=== PATIENT | female | born 1935 | race Caucasian/White ===

== ENCOUNTER 2021-07-07 10:34 | Inpatient (IN) | payer OTHER, MEDICARE ==
[2021-07-07 12:30] LABS: BASO % 0.5 % (0-2.0); EOS % 0.7 % (0-4.5); HEMATOCRIT 34.8 % (32.4-45.2); HEMOGLOBIN 12.2 GM/dL (10.7-15.3); LYMPH % 7.7 % (8-40); MCH 37.7 pg (25.7-33.7); MCHC 35.1 g/dl (32.0-36.0); MEAN CELL VOLUME 107.4 fl (80-96); MEAN PLT VOLUME 7.1 fl (7.5-11.1); MONO % 11.9 % (3.8-10.2); NEUT % 79.2 % (42.8-82.8); PLATELET COUNT 288 10^3/uL (134-434); RBC 3.24 M/mm3 (3.60-5.2); RDW 13.3 % (11.6-15.6); WHITE BLOOD COUNT 7.8 K/mm3 (4.0-10.0)
[2021-07-07 13:17] LABS: ALBUMIN 3.2 g/dl (3.4-5.0); ALK PHOS 92 U/L (45-117); ANION GAP 11 MMOL/L (8-16); BILIRUBIN,TOTAL 0.9 mg/dL (0.2-1); BLOOD UREA NITROGEN 18.6 mg/dL (7-18); CALCIUM 9.8 mg/dL (8.5-10.1); CHLORIDE 101 mmol/L (98-107); CO2 25 mmol/L (21-32); GLUCOSE,RANDOM 81 mg/dL (74-106); SGOT/AST 49 U/L (15-37); SGPT/ALT 26 U/L (13-61); SODIUM 137 mmol/L (136-145); TOT PROT 7.2 g/dl (6.4-8.2)
[2021-07-07 13:28] LABS: ANISOCYTOSIS 2+; MACROCYTOSIS 1+; PLATELET ESTIMATE NORMAL
[2021-07-07 14:39] LABS: MAGNESIUM 1.6 mg/dL (1.8-2.4); PHOSPHOROUS 3.4 mg/dL (2.5-4.9)
[2021-07-07] MEDS ORDERED: ALBUTEROL SO4 0.083% IH SOL 2.5 MG/3 ML VIAL.NEB. NEB PRN (17:09)
[2021-07-07] MEDS: sulfaSALAzine 500 MG TABLET PO SCH ×2 (18:00→21:59)
[2021-07-07] MEDS ORDERED: MAGNESIUM SULF 50% (8.12 MEQ/2 ML-1 GM VIAL) IVPB ONE (18:54)
[2021-07-07] MEDS ORDERED: FLU VACC QS2021-22(6MOS UP)/PF 60 MCG/0.5 ML SYRINGE IM ONE (20:56)
[2021-07-07 21:11] VITALS: BMI 22.9
[2021-07-07] MEDS: BUDESONIDE/FORMETEROL FUMARATE 160/4.5 mcg INHALER IH SCH (22:04)
[2021-07-07] MEDS: ROSUVASTATIN CA 10 MG TABLET (FP) PO SCH (22:05)
[2021-07-07 23:52] LABS: EPI CELLS 1 /uL (0-25.1); HYALINE CASTS 1 /uL (0-3.1); URINE APPEARANCE CLOUDY; URINE BACTERIA 8493 /uL (0-1359); URINE BILIRUBIN NEGATIVE (NEGATIVE); URINE COLOR YELLOW; URINE GLUCOSE (UA) NEGATIVE (NEGATIVE); URINE KETONE 1+ (NEGATIVE); URINE LEUK ESTERASE 3+ (NEGATIVE); URINE NITRITE POSITIVE (NEGATIVE); URINE PROTEIN TRACE (NEGATIVE); URINE RBC 16 /uL (0-23.9); URINE UROBILINOGEN 0.2 mg/dL (0.2-1.0); URINE WBC 690 /uL (0-25.8)
[2021-07-08] MEDS ORDERED: PT OWN MED DRAWER 7, Y5N ONE ×7 (00:36→20:58)
[2021-07-08] MEDS: ACETAMINOPHEN 325 MG TABLET (FP) PO PRN ×2 (03:02→11:24)
[2021-07-08 08:47] LABS: HEMATOCRIT 30.7 % (32.4-45.2); MCH 38.3 pg (25.7-33.7); MCHC 35.9 g/dl (32.0-36.0); MEAN CELL VOLUME 106.5 fl (80-96); MEAN PLT VOLUME 7.1 fl (7.5-11.1); PLATELET COUNT 298 10^3/uL (134-434); RBC 2.88 M/mm3 (3.60-5.2); RDW 13.6 % (11.6-15.6); WHITE BLOOD COUNT 6.4 K/mm3 (4.0-10.0)
[2021-07-08] MEDS ORDERED: ASPIRIN 81 MG CHEWABLE TABLETS PO SCH (10:00)
[2021-07-08] MEDS ORDERED: HYDROCHLOROTHIAZIDE 25 MG TABLET (FP) PO SCH (10:00)
[2021-07-08] MEDS: LOSARTAN POTASSIUM 50 MG TABLET PO SCH (10:34)
[2021-07-08] MEDS: sulfaSALAzine 500 MG TABLET PO SCH ×4 (10:34→21:20)
[2021-07-08] MEDS: ATENOLOL 50 MG TABLET (FP) PO SCH (10:35)
[2021-07-08] MEDS: ENOXAPARIN NA (PORCINE) 40 MG/0.4 ML DISP.SYRIN SQ SCH (10:35)
[2021-07-08] MEDS: amLODIPine BESYLATE 5 MG TABLET (FP) PO SCH (10:35)
[2021-07-08] MEDS: BUDESONIDE/FORMETEROL FUMARATE 160/4.5 mcg INHALER IH SCH ×2 (10:36→21:20)
[2021-07-08 10:37] LABS: ANION GAP 9 MMOL/L (8-16); BLOOD UREA NITROGEN 17.2 mg/dL (7-18); CALCIUM 9.2 mg/dL (8.5-10.1); CHLORIDE 102 mmol/L (98-107); CO2 26 mmol/L (21-32); CREATININE 0.7 mg/dL (0.55-1.3); GLUCOSE,RANDOM 156 mg/dL (74-106); MAGNESIUM 1.8 mg/dL (1.8-2.4); PHOSPHOROUS 2.9 mg/dL (2.5-4.9); SODIUM 136 mmol/L (136-145)
[2021-07-08] MEDS ORDERED: POTASSIUM CHLORIDE TABS 20 MEQ TABLET.ER (FP) PO ONE (11:00)
[2021-07-08] MEDS: KCL 10 MEQ IVPB 10 MEQ/100 ML INFUS.BAG IVPB SCH ×3 (11:12→15:50)
[2021-07-08 19:41] LABS: BF WBC & OTHER NUCLEATED CELLS 14389 /mm3
[2021-07-08 20:11] LABS: BODY FLUID MACROPHAGES 2 %; BODY FLUID MONOCYTE 9 %
[2021-07-08] MEDS: ROSUVASTATIN CA 10 MG TABLET (FP) PO SCH (21:20)
[2021-07-09] MEDS ORDERED: HYDROCHLOROTHIAZIDE 25 MG TABLET (FP) PO SCH ×2 (07:00→10:27)
[2021-07-09 08:46] LABS: BASO % 0.2 % (0-2.0); HEMATOCRIT 32.3 % (32.4-45.2); HEMOGLOBIN 11.4 GM/dL (10.7-15.3); LYMPH % 4.6 % (8-40); MCH 37.8 pg (25.7-33.7); MCHC 35.1 g/dl (32.0-36.0); MEAN CELL VOLUME 107.6 fl (80-96); MEAN PLT VOLUME 7.3 fl (7.5-11.1); MONO % 4.5 % (3.8-10.2); NEUT % 90.7 % (42.8-82.8); PLATELET COUNT 329 10^3/uL (134-434); RDW 13.7 % (11.6-15.6); WHITE BLOOD COUNT 6.2 K/mm3 (4.0-10.0)
[2021-07-09 10:42] LABS: ALBUMIN 2.6 g/dl (3.4-5.0); BILIRUBIN,TOTAL 0.3 mg/dL (0.2-1); CALCIUM 9.1 mg/dL (8.5-10.1); CREATININE 0.5 mg/dL (0.55-1.3); MAGNESIUM 1.9 mg/dL (1.8-2.4); TOT PROT 6.6 g/dl (6.4-8.2)
[2021-07-09] MEDS: ENOXAPARIN NA (PORCINE) 40 MG/0.4 ML DISP.SYRIN SQ SCH (10:51)
[2021-07-09] MEDS: amLODIPine BESYLATE 5 MG TABLET (FP) PO SCH (10:51)
[2021-07-09] MEDS: BUDESONIDE/FORMETEROL FUMARATE 160/4.5 mcg INHALER IH SCH ×2 (10:52→21:10)
[2021-07-09] MEDS: ATENOLOL 50 MG TABLET (FP) PO SCH (10:52)
[2021-07-09] MEDS: sulfaSALAzine 500 MG TABLET PO SCH ×4 (10:52→21:09)
[2021-07-09] MEDS: LOSARTAN POTASSIUM 50 MG TABLET PO SCH (10:52)
[2021-07-09] MEDS ORDERED: PT OWN MED DRAWER 7, Y5N ONE ×2 (21:07→21:56)
[2021-07-09] MEDS: ROSUVASTATIN CA 10 MG TABLET (FP) PO SCH (21:10)
[2021-07-09] MEDS ORDERED: SIMETHICONE 80 MG TAB.CHEW (FP) PO ONE (22:16)
[2021-07-10 04:57] VITALS: BP 139/67; PULSE 68; TEMP 97
[2021-07-10] MEDS ORDERED: PT OWN MED DRAWER 7, Y5N ONE (09:14)
[2021-07-10] MEDS: LOSARTAN POTASSIUM 50 MG TABLET PO SCH (09:26)
[2021-07-10] MEDS: amLODIPine BESYLATE 5 MG TABLET (FP) PO SCH (09:26)
[2021-07-10] MEDS: ATENOLOL 50 MG TABLET (FP) PO SCH (09:26)
[2021-07-10] MEDS: ENOXAPARIN NA (PORCINE) 40 MG/0.4 ML DISP.SYRIN SQ SCH (09:27)
[2021-07-10] MEDS: sulfaSALAzine 500 MG TABLET PO SCH ×2 (09:27→14:17)
[2021-07-10] MEDS: BUDESONIDE/FORMETEROL FUMARATE 160/4.5 mcg INHALER IH SCH (09:28)
[2021-07-10 10:05] LABS: BLOOD UREA NITROGEN 25.6 mg/dL (7-18); CALCIUM 8.8 mg/dL (8.5-10.1); CREATININE 0.7 mg/dL (0.55-1.3)
== END 2021-07-10 17:24 | DRG 565 ==
LOC: JER 10:34 → JERBED 12:03 → J6S 18:39
PROVIDERS: ADMIT Internal Medicine; ATTEND Internal Medicine
PROC: 0S9D3ZZ Drainage of Left Knee Joint, Percutaneous Approach (ICD-10-PCS; principal; 2021-07-08)
DX: M25.462 Effusion, left knee (principal); K51.90 Ulcerative colitis, unspecified, without complications; M25.461 Effusion, right knee; M17.0 Bilateral primary osteoarthritis of knee; R29.898 Other symptoms and signs involving the musculoskeletal system; E78.5 Hyperlipidemia, unspecified; J44.9 Chronic obstructive pulmonary disease, unspecified; I10 Essential (primary) hypertension; R29.6 Repeated falls; E03.9 Hypothyroidism, unspecified
CPT/HCPCS: 36415; 70450-TC; 71045-TC-FY; 73552-TC-LT-FY; 73562-TC-LT-FY; 73562-TC-RT-FY; 80048; 80053; 81003; 82306; 82550; 82553; 82607; 82746; 82962; 83036; 83735; 84100; 84132; 84443; 84484; 85025; 85027; 86780; 87070; 87075; 87086; 87186; 87205; 90686; 93005; 93010; 93306-TC; 93971-TC; 97116-GP; 97162-GP; 99285-25; C9803; G0008; U0003; U0005

== ENCOUNTER 2021-08-14 08:33 | Inpatient (IN) | payer OTHER, MEDICARE ==
[2021-08-14] MEDS ORDERED: ACETAMINOPHEN 1000 MG/100 ML BAG IVPB ONE (09:23)
[2021-08-14] MEDS ORDERED: ACETAMINOPHEN INJECTION 100 ML IVPB ONE (09:34)
[2021-08-14] MEDS ORDERED: POLYETHYLENE GLYCOL (HEALTHYLAX) 3350 17 GM PACKET PO SCH (10:00)
[2021-08-14 10:28] LABS: BASO % 0.9 % (0-2.0); EOS % 6.8 % (0-4.5); HEMATOCRIT 27.4 % (32.4-45.2); HEMOGLOBIN 9.1 GM/dL (10.7-15.3); LYMPH % 7.7 % (8-40); MCH 33.7 pg (25.7-33.7); MCHC 33.2 g/dl (32.0-36.0); MEAN CELL VOLUME 101.3 fl (80-96); MEAN PLT VOLUME 6.7 fl (7.5-11.1); MONO % 6.2 % (3.8-10.2); NEUT % 78.4 % (42.8-82.8); PLATELET COUNT 481 10^3/uL (134-434); RBC 2.71 M/mm3 (3.60-5.2); RDW 14.7 % (11.6-15.6); WHITE BLOOD COUNT 11.9 K/mm3 (4.0-10.0)
[2021-08-14 10:44] LABS: CALCIUM 8.8 mg/dL (8.5-10.1)
[2021-08-14 10:45] LABS: BLOOD UREA NITROGEN 24.6 mg/dL (7-18)
[2021-08-14 10:48] LABS: CREATININE 0.8 mg/dL (0.55-1.3)
[2021-08-14 10:50] LABS: BILIRUBIN,TOTAL 0.4 mg/dL (0.2-1); TOT PROT 6.4 g/dl (6.4-8.2)
[2021-08-14] MEDS ORDERED: POTASSIUM CHLORIDE TABS 20 MEQ TABLET.ER (FP) PO ONE ×2 (10:51→10:55)
[2021-08-14 10:58] LABS: ALBUMIN 2.1 g/dl (3.4-5.0)
[2021-08-14] MEDS ORDERED: SODIUM CHLORIDE 500 ML IV STA (12:40)
[2021-08-14 13:04] LABS: MAGNESIUM 1.5 mg/dL (1.8-2.4)
[2021-08-14] MEDS ORDERED: MAGNESIUM OXIDE 400 MG TABLET (FP) PO ONE (13:28)
[2021-08-14] MEDS ORDERED: MAGNESIUM OXIDE 400 MG TABLET (FP) ONE (13:31)
[2021-08-14] MEDS ORDERED: SODIUM PHOSPHATE/NA BIPHOS 133 ML ENEMA PR ONE (15:09)
[2021-08-14] MEDS: SENNOSIDES 8.6MG TABLET (FP) PO PRN (21:55)
[2021-08-14] MEDS ORDERED: DOCUSATE SODIUM 100 MG CAPSULE (FP) PO SCH (22:00)
[2021-08-15] MEDS ORDERED: ACETAMINOPHEN 325 MG TABLET (FP) PO ONE (03:38)
[2021-08-15] MEDS ORDERED: ALBUTEROL SO4 2.5/IPRATROPIUM 0.5 INH SOL 3 ML VIAL.NEB. NEB PRN (09:01)
[2021-08-15] MEDS ORDERED: BUDESONIDE/FORMETEROL FUMARATE 160/4.5 mcg INHALER IH SCH (10:00)
[2021-08-15] MEDS ORDERED: POLYETHYLENE GLYCOL 3350 119 GM BTL PO SCH (10:00)
[2021-08-15] MEDS: CALCIUM CARBONATE 650 MG TABLET PO SCH ×2 (19:36→21:01)
[2021-08-15] MEDS: SENNOSIDES 8.6MG TABLET (FP) PO PRN (20:56)
[2021-08-15] MEDS: ROSUVASTATIN CA 10 MG TABLET PO SCH (21:00)
[2021-08-15] MEDS: sulfaSALAzine 500 MG TABLET PO SCH (21:00)
[2021-08-15] MEDS: MONTELUKAST NA 10 MG TABLET PO SCH (21:00)
[2021-08-15] MEDS ORDERED: ONDANSETRON 4 MG/2 ML VIAL IVPUSH ONE (22:15)
[2021-08-16] MEDS: LEVOTHYROXINE NA 100 MCG TABLET (FP) PO SCH (06:31)
[2021-08-16] MEDS: sulfaSALAzine 500 MG TABLET PO SCH ×3 (06:31→22:03)
[2021-08-16] MEDS: LOSARTAN POTASSIUM 50 MG TABLET PO SCH ×2 (10:00→10:21)
[2021-08-16] MEDS ORDERED: PT OWN MED DRAWER 7, Y5N ONE (10:20)
[2021-08-16] MEDS: amLODIPine BESYLATE 5 MG TABLET (FP) PO SCH (10:23)
[2021-08-16] MEDS: BUDESONIDE/FORMETEROL FUMARATE 160/4.5 mcg INHALER IH SCH ×2 (10:27→22:03)
[2021-08-16] MEDS: CALCIUM CARBONATE 650 MG TABLET PO SCH ×2 (14:53→22:03)
[2021-08-16] MEDS: PANTOPRAZOLE 20 MG TABLET PO SCH (14:57)
[2021-08-16 15:24] VITALS: BMI 22.4
[2021-08-16] MEDS: SIMETHICONE 80 MG TAB.CHEW (FP) PO PRN (15:57)
[2021-08-16] MEDS: SENNOSIDES 8.6MG TABLET (FP) PO PRN (17:56)
[2021-08-16] MEDS: AMINO ACIDS/PROTEIN HYDROLYS 30 ML LIQUID.PKT PO SCH (17:57)
[2021-08-16] MEDS: MONTELUKAST NA 10 MG TABLET PO SCH (22:02)
[2021-08-16] MEDS: ROSUVASTATIN CA 10 MG TABLET PO SCH (22:02)
[2021-08-17] MEDS ORDERED: PT OWN MED DRAWER 7, Y5N ONE ×4 (06:04→22:57)
[2021-08-17] MEDS: LEVOTHYROXINE NA 100 MCG TABLET (FP) PO SCH (06:08)
[2021-08-17] MEDS: sulfaSALAzine 500 MG TABLET PO SCH ×3 (06:08→16:06)
[2021-08-17] MEDS: LOSARTAN POTASSIUM 50 MG TABLET PO SCH ×2 (07:31→09:58)
[2021-08-17] MEDS: amLODIPine BESYLATE 5 MG TABLET (FP) PO SCH ×2 (07:31→09:58)
[2021-08-17] MEDS: AMINO ACIDS/PROTEIN HYDROLYS 30 ML LIQUID.PKT PO SCH ×2 (09:57→18:11)
[2021-08-17] MEDS: ASCORBIC ACID 500 MG TABLET (FP) PO SCH (09:58)
[2021-08-17] MEDS: MULTIVITAMINS (DAILY MVI) TABLET (FP) PO SCH (09:58)
[2021-08-17] MEDS: PANTOPRAZOLE 20 MG TABLET PO SCH (09:58)
[2021-08-17] MEDS: BUDESONIDE/FORMETEROL FUMARATE 160/4.5 mcg INHALER IH SCH ×2 (10:00→23:23)
[2021-08-17] MEDS: POLYETHYLENE GLYCOL (HEALTHYLAX) 3350 17 GM PACKET PO SCH ×2 (10:02→10:20)
[2021-08-17 10:45] LABS: HEMATOCRIT 28.4 % (32.4-45.2); HEMOGLOBIN 9.3 GM/dL (10.7-15.3); MCH 33.6 pg (25.7-33.7); MCHC 32.8 g/dl (32.0-36.0); MEAN CELL VOLUME 102.5 fl (80-96); MEAN PLT VOLUME 6.6 fl (7.5-11.1); PLATELET COUNT 464 10^3/uL (134-434); RBC 2.77 M/mm3 (3.60-5.2); RDW 14.6 % (11.6-15.6)
[2021-08-17 11:15] LABS: CALCIUM 8.1 mg/dL (8.5-10.1)
[2021-08-17 11:16] LABS: BLOOD UREA NITROGEN 7.8 mg/dL (7-18); MAGNESIUM 1.4 mg/dL (1.8-2.4)
[2021-08-17 11:20] LABS: CREATININE 0.4 mg/dL (0.55-1.3)
[2021-08-17] MEDS ORDERED: MAGNESIUM SULF 50% (8.12 MEQ/2 ML-1 GM VIAL) IVPB ONE (15:32)
[2021-08-17] MEDS: CALCIUM CARBONATE 650 MG TABLET PO SCH (16:04)
[2021-08-17] MEDS ORDERED: POTASSIUM CHLORIDE TABS 10 MEQ TABLET.ER (FP) PO ONE (20:00)
[2021-08-18] MEDS: CALCIUM CARBONATE 650 MG TABLET PO SCH ×3 (02:15→21:04)
[2021-08-18] MEDS: ROSUVASTATIN CA 10 MG TABLET PO SCH ×2 (02:15→21:04)
[2021-08-18] MEDS: sulfaSALAzine 500 MG TABLET PO SCH ×4 (02:15→21:04)
[2021-08-18] MEDS: MONTELUKAST NA 10 MG TABLET PO SCH ×2 (02:16→21:04)
[2021-08-18] MEDS: POLYETHYLENE GLYCOL (HEALTHYLAX) 3350 17 GM PACKET PO SCH ×3 (02:16→21:04)
[2021-08-18] MEDS ORDERED: ACETAMINOPHEN 325 MG TABLET (FP) PO ONE (02:29)
[2021-08-18] MEDS: LEVOTHYROXINE NA 100 MCG TABLET (FP) PO SCH (07:10)
[2021-08-18] MEDS: AMINO ACIDS/PROTEIN HYDROLYS 30 ML LIQUID.PKT PO SCH ×2 (08:33→17:28)
[2021-08-18 08:34] LABS: HEMATOCRIT 26.1 % (32.4-45.2); HEMOGLOBIN 8.8 GM/dL (10.7-15.3); MCHC 33.8 g/dl (32.0-36.0); MEAN CELL VOLUME 100.8 fl (80-96); MEAN PLT VOLUME 6.4 fl (7.5-11.1); PLATELET COUNT 414 10^3/uL (134-434); RBC 2.59 M/mm3 (3.60-5.2); RDW 14.9 % (11.6-15.6); WHITE BLOOD COUNT 6.8 K/mm3 (4.0-10.0)
[2021-08-18 08:55] LABS: BLOOD UREA NITROGEN 8.9 mg/dL (7-18)
[2021-08-18 08:59] LABS: CREATININE 0.5 mg/dL (0.55-1.3)
[2021-08-18] MEDS ORDERED: PT OWN MED DRAWER 7, Y5N ONE ×3 (10:01→20:54)
[2021-08-18] MEDS: ASCORBIC ACID 500 MG TABLET (FP) PO SCH (10:45)
[2021-08-18] MEDS: ENOXAPARIN NA (PORCINE) 40 MG/0.4 ML DISP.SYRIN SQ SCH (10:45)
[2021-08-18] MEDS: PANTOPRAZOLE 20 MG TABLET PO SCH (10:45)
[2021-08-18] MEDS: MULTIVITAMINS (DAILY MVI) TABLET (FP) PO SCH (10:45)
[2021-08-18] MEDS: SENNOSIDES 8.6MG TABLET (FP) PO SCH (10:47)
[2021-08-18] MEDS: BUDESONIDE/FORMETEROL FUMARATE 160/4.5 mcg INHALER IH SCH ×2 (10:47→21:04)
[2021-08-18] MEDS: LOSARTAN POTASSIUM 50 MG TABLET PO SCH (11:53)
[2021-08-18] MEDS: amLODIPine BESYLATE 5 MG TABLET (FP) PO SCH (11:53)
[2021-08-18] MEDS: SIMETHICONE 80 MG TAB.CHEW (FP) PO PRN (13:46)
[2021-08-18] MEDS ORDERED: ACETAMINOPHEN 325 MG TABLET (FP) PO PRN (16:36)
[2021-08-18] MEDS: traMADol HCL 50 MG TABLET PO PRN (17:28)
[2021-08-18] MEDS: ACETAMINOPHEN 325 MG TABLET (FP) PO PRN (20:32)
[2021-08-19] MEDS ORDERED: PT OWN MED DRAWER 7, Y5N ONE ×5 (05:24→22:49)
[2021-08-19] MEDS: sulfaSALAzine 500 MG TABLET PO SCH ×3 (06:46→22:19)
[2021-08-19] MEDS: LEVOTHYROXINE NA 100 MCG TABLET (FP) PO SCH (06:46)
[2021-08-19 09:51] LABS: HEMATOCRIT 25.3 % (32.4-45.2); HEMOGLOBIN 8.5 GM/dL (10.7-15.3); MCH 33.8 pg (25.7-33.7); MCHC 33.5 g/dl (32.0-36.0); MEAN CELL VOLUME 100.8 fl (80-96); MEAN PLT VOLUME 6.5 fl (7.5-11.1); PLATELET COUNT 418 10^3/uL (134-434); RBC 2.51 M/mm3 (3.60-5.2); RDW 14.6 % (11.6-15.6); WHITE BLOOD COUNT 8.1 K/mm3 (4.0-10.0)
[2021-08-19 10:20] LABS: BLOOD UREA NITROGEN 10.6 mg/dL (7-18)
[2021-08-19 10:24] LABS: CREATININE 0.5 mg/dL (0.55-1.3)
[2021-08-19] MEDS ORDERED: POTASSIUM CHLORIDE TABS 20 MEQ TABLET.ER (FP) PO ONE (10:29)
[2021-08-19] MEDS: MULTIVITAMINS (DAILY MVI) TABLET (FP) PO SCH (11:23)
[2021-08-19] MEDS: SENNOSIDES 8.6MG TABLET (FP) PO SCH (11:23)
[2021-08-19] MEDS: LOSARTAN POTASSIUM 50 MG TABLET PO SCH (11:23)
[2021-08-19] MEDS: ASCORBIC ACID 500 MG TABLET (FP) PO SCH (11:23)
[2021-08-19] MEDS: amLODIPine BESYLATE 5 MG TABLET (FP) PO SCH (11:24)
[2021-08-19] MEDS: PANTOPRAZOLE 20 MG TABLET PO SCH (11:24)
[2021-08-19] MEDS: CALCIUM CARBONATE 650 MG TABLET PO SCH ×3 (11:24→22:19)
[2021-08-19] MEDS: ENOXAPARIN NA (PORCINE) 40 MG/0.4 ML DISP.SYRIN SQ SCH (11:24)
[2021-08-19] MEDS: ACETAMINOPHEN 325 MG TABLET (FP) PO PRN ×2 (11:25→22:05)
[2021-08-19] MEDS: AMINO ACIDS/PROTEIN HYDROLYS 30 ML LIQUID.PKT PO SCH ×2 (11:26→17:32)
[2021-08-19] MEDS: BUDESONIDE/FORMETEROL FUMARATE 160/4.5 mcg INHALER IH SCH ×2 (11:27→22:19)
[2021-08-19] MEDS: POLYETHYLENE GLYCOL (HEALTHYLAX) 3350 17 GM PACKET PO SCH ×3 (11:45→22:07)
[2021-08-19] MEDS: ZINC OXIDE 20% TOPICAL OINTMENT 30 GM TUBE TP SCH ×2 (15:20→22:19)
[2021-08-19] MEDS: MELATONIN 5 MG TABLETS PO PRN (22:05)
[2021-08-19] MEDS: ROSUVASTATIN CA 10 MG TABLET PO SCH (22:07)
[2021-08-19] MEDS: MONTELUKAST NA 10 MG TABLET PO SCH (22:19)
[2021-08-20] MEDS: sulfaSALAzine 500 MG TABLET PO SCH ×3 (07:07→18:42)
[2021-08-20] MEDS: LEVOTHYROXINE NA 100 MCG TABLET (FP) PO SCH (07:07)
[2021-08-20 10:34] LABS: HEMATOCRIT 25.2 % (32.4-45.2); HEMOGLOBIN 8.4 GM/dL (10.7-15.3); MCH 33.9 pg (25.7-33.7); MCHC 33.4 g/dl (32.0-36.0); MEAN CELL VOLUME 101.7 fl (80-96); MEAN PLT VOLUME 6.7 fl (7.5-11.1); PLATELET COUNT 451 10^3/uL (134-434); RBC 2.48 M/mm3 (3.60-5.2); RDW 14.6 % (11.6-15.6); WHITE BLOOD COUNT 6.2 K/mm3 (4.0-10.0)
[2021-08-20 10:48] LABS: CALCIUM 8.2 mg/dL (8.5-10.1)
[2021-08-20 10:49] LABS: BLOOD UREA NITROGEN 9.4 mg/dL (7-18); MAGNESIUM 1.7 mg/dL (1.8-2.4)
[2021-08-20 10:52] LABS: CREATININE 0.4 mg/dL (0.55-1.3)
[2021-08-20] MEDS ORDERED: PT OWN MED DRAWER 7, Y5N ONE ×2 (10:54→15:05)
[2021-08-20] MEDS: ENOXAPARIN NA (PORCINE) 40 MG/0.4 ML DISP.SYRIN SQ SCH (10:57)
[2021-08-20] MEDS: SENNOSIDES 8.6MG TABLET (FP) PO SCH (10:58)
[2021-08-20] MEDS: AMINO ACIDS/PROTEIN HYDROLYS 30 ML LIQUID.PKT PO SCH ×2 (10:59→18:42)
[2021-08-20] MEDS: LOSARTAN POTASSIUM 50 MG TABLET PO SCH (10:59)
[2021-08-20] MEDS: ZINC OXIDE 20% TOPICAL OINTMENT 30 GM TUBE TP SCH ×2 (10:59→23:48)
[2021-08-20] MEDS: CALCIUM CARBONATE 650 MG TABLET PO SCH ×2 (10:59→23:46)
[2021-08-20] MEDS: amLODIPine BESYLATE 5 MG TABLET (FP) PO SCH (10:59)
[2021-08-20] MEDS: MULTIVITAMINS (DAILY MVI) TABLET (FP) PO SCH (10:59)
[2021-08-20] MEDS: PANTOPRAZOLE 20 MG TABLET PO SCH (10:59)
[2021-08-20] MEDS: ASCORBIC ACID 500 MG TABLET (FP) PO SCH (10:59)
[2021-08-20] MEDS: POLYETHYLENE GLYCOL (HEALTHYLAX) 3350 17 GM PACKET PO SCH ×2 (10:59→23:46)
[2021-08-20] MEDS: BUDESONIDE/FORMETEROL FUMARATE 160/4.5 mcg INHALER IH SCH ×2 (11:01→23:47)
[2021-08-20] MEDS ORDERED: MAGNESIUM CL 64 MG TABLET.SA PO ONE (12:00)
[2021-08-20] MEDS: FERROUS SO4 325 MG TABLET (FP) PO SCH (15:08)
[2021-08-20] MEDS: ACETAMINOPHEN 325 MG TABLET (FP) PO PRN (23:45)
[2021-08-20] MEDS: MONTELUKAST NA 10 MG TABLET PO SCH (23:46)
[2021-08-20] MEDS: ROSUVASTATIN CA 10 MG TABLET PO SCH (23:46)
[2021-08-21] MEDS: LEVOTHYROXINE NA 100 MCG TABLET (FP) PO SCH (06:46)
[2021-08-21 08:10] LABS: HEMATOCRIT 26.3 % (32.4-45.2); HEMOGLOBIN 8.8 GM/dL (10.7-15.3); MCH 33.8 pg (25.7-33.7); MCHC 33.5 g/dl (32.0-36.0); MEAN PLT VOLUME 6.4 fl (7.5-11.1); PLATELET COUNT 496 10^3/uL (134-434); RDW 14.8 % (11.6-15.6); WHITE BLOOD COUNT 5.5 K/mm3 (4.0-10.0)
[2021-08-21 09:01] LABS: CALCIUM 8.7 mg/dL (8.5-10.1)
[2021-08-21 09:02] LABS: BLOOD UREA NITROGEN 11.8 mg/dL (7-18)
[2021-08-21 09:05] LABS: CREATININE 0.4 mg/dL (0.55-1.3)
[2021-08-21 09:33] LABS: ERYTHROCYTE SEDIMENTATION RATE 111 mm/hr (0-30)
[2021-08-21] MEDS: AMINO ACIDS/PROTEIN HYDROLYS 30 ML LIQUID.PKT PO SCH ×2 (10:19→17:04)
[2021-08-21] MEDS: ENOXAPARIN NA (PORCINE) 40 MG/0.4 ML DISP.SYRIN SQ SCH (10:19)
[2021-08-21] MEDS: ZINC SULFATE 220 MG CAPSULE (FP) PO SCH (10:20)
[2021-08-21] MEDS: amLODIPine BESYLATE 5 MG TABLET (FP) PO SCH (10:20)
[2021-08-21] MEDS: FERROUS SO4 325 MG TABLET (FP) PO SCH (10:20)
[2021-08-21] MEDS: LOSARTAN POTASSIUM 50 MG TABLET PO SCH (10:20)
[2021-08-21] MEDS: MULTIVITAMINS (DAILY MVI) TABLET (FP) PO SCH (10:20)
[2021-08-21] MEDS: ASCORBIC ACID 500 MG TABLET (FP) PO SCH (10:20)
[2021-08-21] MEDS: PANTOPRAZOLE 20 MG TABLET PO SCH (10:20)
[2021-08-21] MEDS: SENNOSIDES 8.6MG TABLET (FP) PO SCH (10:20)
[2021-08-21] MEDS: sulfaSALAzine 500 MG TABLET PO SCH ×3 (10:21→17:04)
[2021-08-21] MEDS: POLYETHYLENE GLYCOL (HEALTHYLAX) 3350 17 GM PACKET PO SCH ×2 (10:24→22:25)
[2021-08-21] MEDS: CALCIUM CARBONATE 650 MG TABLET PO SCH ×2 (11:58→22:42)
[2021-08-21] MEDS: BUDESONIDE/FORMETEROL FUMARATE 160/4.5 mcg INHALER IH SCH ×2 (11:59→22:27)
[2021-08-21] MEDS: ZINC OXIDE 20% TOPICAL OINTMENT 30 GM TUBE TP SCH ×2 (12:00→22:26)
[2021-08-21] MEDS: ACETAMINOPHEN 325 MG TABLET (FP) PO PRN (22:20)
[2021-08-21] MEDS: ROSUVASTATIN CA 10 MG TABLET PO SCH (22:24)
[2021-08-21] MEDS: MONTELUKAST NA 10 MG TABLET PO SCH (22:25)
[2021-08-22] MEDS: LEVOTHYROXINE NA 100 MCG TABLET (FP) PO SCH (06:41)
[2021-08-22] MEDS: LOSARTAN POTASSIUM 50 MG TABLET PO SCH (10:28)
[2021-08-22] MEDS: MULTIVITAMINS (DAILY MVI) TABLET (FP) PO SCH (10:28)
[2021-08-22] MEDS: ASCORBIC ACID 500 MG TABLET (FP) PO SCH (10:28)
[2021-08-22] MEDS: FERROUS SO4 325 MG TABLET (FP) PO SCH (10:29)
[2021-08-22] MEDS: ENOXAPARIN NA (PORCINE) 40 MG/0.4 ML DISP.SYRIN SQ SCH (10:29)
[2021-08-22] MEDS: amLODIPine BESYLATE 5 MG TABLET (FP) PO SCH (10:29)
[2021-08-22] MEDS: ZINC SULFATE 220 MG CAPSULE (FP) PO SCH (10:29)
[2021-08-22] MEDS: SENNOSIDES 8.6MG TABLET (FP) PO SCH (10:29)
[2021-08-22] MEDS: AMINO ACIDS/PROTEIN HYDROLYS 30 ML LIQUID.PKT PO SCH ×2 (10:29→17:40)
[2021-08-22] MEDS: PANTOPRAZOLE 20 MG TABLET PO SCH (10:29)
[2021-08-22] MEDS ORDERED: PT OWN MED DRAWER 7, Y5N ONE ×5 (10:36→21:38)
[2021-08-22] MEDS: traMADol HCL 50 MG TABLET PO PRN (10:38)
[2021-08-22] MEDS: sulfaSALAzine 500 MG TABLET PO SCH ×3 (10:39→17:52)
[2021-08-22] MEDS: CALCIUM CARBONATE 650 MG TABLET PO SCH ×2 (10:40→21:29)
[2021-08-22] MEDS: BUDESONIDE/FORMETEROL FUMARATE 160/4.5 mcg INHALER IH SCH ×2 (10:40→21:30)
[2021-08-22] MEDS: ZINC OXIDE 20% TOPICAL OINTMENT 30 GM TUBE TP SCH ×2 (10:40→21:30)
[2021-08-22] MEDS: MONTELUKAST NA 10 MG TABLET PO SCH (21:29)
[2021-08-22] MEDS: ROSUVASTATIN CA 10 MG TABLET PO SCH (21:29)
[2021-08-23] MEDS: LEVOTHYROXINE NA 100 MCG TABLET (FP) PO SCH (06:25)
[2021-08-23] MEDS ORDERED: PT OWN MED DRAWER 7, Y5N ONE ×3 (10:58→21:59)
[2021-08-23] MEDS: CALCIUM CARBONATE 650 MG TABLET PO SCH ×2 (11:25→23:54)
[2021-08-23] MEDS: LOSARTAN POTASSIUM 50 MG TABLET PO SCH (11:25)
[2021-08-23] MEDS: amLODIPine BESYLATE 5 MG TABLET (FP) PO SCH (11:25)
[2021-08-23] MEDS: ZINC SULFATE 220 MG CAPSULE (FP) PO SCH (11:25)
[2021-08-23] MEDS: SENNOSIDES 8.6MG TABLET (FP) PO SCH (11:25)
[2021-08-23] MEDS: MULTIVITAMINS (DAILY MVI) TABLET (FP) PO SCH (11:25)
[2021-08-23] MEDS: FERROUS SO4 325 MG TABLET (FP) PO SCH (11:25)
[2021-08-23] MEDS: ASCORBIC ACID 500 MG TABLET (FP) PO SCH (11:25)
[2021-08-23] MEDS: PANTOPRAZOLE 20 MG TABLET PO SCH (11:26)
[2021-08-23] MEDS: BUDESONIDE/FORMETEROL FUMARATE 160/4.5 mcg INHALER IH SCH ×2 (11:26→22:11)
[2021-08-23] MEDS: sulfaSALAzine 500 MG TABLET PO SCH ×3 (11:26→18:00)
[2021-08-23] MEDS: ENOXAPARIN NA (PORCINE) 40 MG/0.4 ML DISP.SYRIN SQ SCH (11:26)
[2021-08-23] MEDS: AMINO ACIDS/PROTEIN HYDROLYS 30 ML LIQUID.PKT PO SCH ×2 (11:26→19:27)
[2021-08-23] MEDS: ZINC OXIDE 20% TOPICAL OINTMENT 30 GM TUBE TP SCH ×2 (14:24→22:07)
[2021-08-23] MEDS: traMADol HCL 50 MG TABLET PO PRN (18:04)
[2021-08-23] MEDS: ACETAMINOPHEN 325 MG TABLET (FP) PO PRN (22:05)
[2021-08-23] MEDS: MELATONIN 5 MG TABLETS PO PRN (22:06)
[2021-08-23] MEDS: ROSUVASTATIN CA 10 MG TABLET PO SCH (22:06)
[2021-08-23] MEDS: MONTELUKAST NA 10 MG TABLET PO SCH (22:06)
[2021-08-24] MEDS ORDERED: PT OWN MED DRAWER 7, Y5N ONE ×2 (00:15→12:07)
[2021-08-24] MEDS: LEVOTHYROXINE NA 100 MCG TABLET (FP) PO SCH (06:13)
[2021-08-24 08:02] LABS: BASO % 1.1 % (0-2.0); EOS % 5.3 % (0-4.5); HEMATOCRIT 25.5 % (32.4-45.2); HEMOGLOBIN 8.5 GM/dL (10.7-15.3); LYMPH % 8.8 % (8-40); MCH 33.7 pg (25.7-33.7); MCHC 33.5 g/dl (32.0-36.0); MEAN CELL VOLUME 100.7 fl (80-96); MONO % 10.2 % (3.8-10.2); NEUT % 74.6 % (42.8-82.8); PLATELET COUNT 577 10^3/uL (134-434); RBC 2.53 M/mm3 (3.60-5.2); RDW 14.9 % (11.6-15.6); WHITE BLOOD COUNT 7.2 K/mm3 (4.0-10.0)
[2021-08-24] MEDS: sulfaSALAzine 500 MG TABLET PO SCH ×3 (12:12→20:39)
[2021-08-24] MEDS: PANTOPRAZOLE 20 MG TABLET PO SCH (12:13)
[2021-08-24] MEDS: ENOXAPARIN NA (PORCINE) 40 MG/0.4 ML DISP.SYRIN SQ SCH (12:13)
[2021-08-24] MEDS: LOSARTAN POTASSIUM 50 MG TABLET PO SCH (12:13)
[2021-08-24] MEDS: FERROUS SO4 325 MG TABLET (FP) PO SCH (12:14)
[2021-08-24] MEDS: ZINC SULFATE 220 MG CAPSULE (FP) PO SCH (12:14)
[2021-08-24] MEDS: MULTIVITAMINS (DAILY MVI) TABLET (FP) PO SCH (12:14)
[2021-08-24] MEDS: amLODIPine BESYLATE 5 MG TABLET (FP) PO SCH (12:14)
[2021-08-24] MEDS: AMINO ACIDS/PROTEIN HYDROLYS 30 ML LIQUID.PKT PO SCH ×2 (12:15→20:40)
[2021-08-24] MEDS: ZINC OXIDE 20% TOPICAL OINTMENT 30 GM TUBE TP SCH ×2 (12:16→21:09)
[2021-08-24] MEDS: ASCORBIC ACID 500 MG TABLET (FP) PO SCH (12:16)
[2021-08-24] MEDS: CALCIUM CARBONATE 650 MG TABLET PO SCH ×2 (12:16→21:08)
[2021-08-24] MEDS: BUDESONIDE/FORMETEROL FUMARATE 160/4.5 mcg INHALER IH SCH ×2 (12:16→21:08)
[2021-08-24] MEDS: SENNOSIDES 8.6MG TABLET (FP) PO SCH (12:17)
[2021-08-24] MEDS ORDERED: AZITHROMYCIN 250 MG TABLET PO ONE ×2 (15:00→16:15)
[2021-08-24] MEDS: ACETAMINOPHEN 325 MG TABLET (FP) PO PRN (20:39)
[2021-08-24] MEDS: MONTELUKAST NA 10 MG TABLET PO SCH (21:08)
[2021-08-24] MEDS: ROSUVASTATIN CA 10 MG TABLET PO SCH (21:08)
[2021-08-25] MEDS: LEVOTHYROXINE NA 100 MCG TABLET (FP) PO SCH (06:47)
[2021-08-25] MEDS: ACETAMINOPHEN 325 MG TABLET (FP) PO PRN ×2 (06:47→20:02)
[2021-08-25] MEDS ORDERED: INSULIN (NOVOLOG) ASPART 100 UNITS/ML 10ML VIAL ONE (07:07)
[2021-08-25] MEDS ORDERED: INSULIN (LEVEMIR) 100 UNITS/ML UNITS SQ ONE (07:08)
[2021-08-25] MEDS ORDERED: PT OWN MED DRAWER 7, Y5N ONE (08:53)
[2021-08-25] MEDS: PANTOPRAZOLE 20 MG TABLET PO SCH (10:24)
[2021-08-25] MEDS: ZINC SULFATE 220 MG CAPSULE (FP) PO SCH (10:24)
[2021-08-25] MEDS: AMINO ACIDS/PROTEIN HYDROLYS 30 ML LIQUID.PKT PO SCH ×2 (10:24→18:05)
[2021-08-25] MEDS: ASCORBIC ACID 500 MG TABLET (FP) PO SCH (10:24)
[2021-08-25] MEDS: POLYETHYLENE GLYCOL (HEALTHYLAX) 3350 17 GM PACKET PO SCH (10:24)
[2021-08-25] MEDS: SENNOSIDES 8.6MG TABLET (FP) PO SCH (10:25)
[2021-08-25] MEDS: amLODIPine BESYLATE 5 MG TABLET (FP) PO SCH ×2 (10:25→11:37)
[2021-08-25] MEDS: MULTIVITAMINS (DAILY MVI) TABLET (FP) PO SCH (10:25)
[2021-08-25] MEDS: FERROUS SO4 325 MG TABLET (FP) PO SCH (10:25)
[2021-08-25] MEDS: CALCIUM CARBONATE 650 MG TABLET PO SCH ×2 (10:26→21:11)
[2021-08-25] MEDS: sulfaSALAzine 500 MG TABLET PO SCH ×3 (10:26→18:05)
[2021-08-25] MEDS: LOSARTAN POTASSIUM 50 MG TABLET PO SCH ×2 (10:26→11:36)
[2021-08-25] MEDS: BUDESONIDE/FORMETEROL FUMARATE 160/4.5 mcg INHALER IH SCH ×2 (10:28→21:12)
[2021-08-25] MEDS: ZINC OXIDE 20% TOPICAL OINTMENT 30 GM TUBE TP SCH ×2 (13:24→21:12)
[2021-08-25] MEDS: ROSUVASTATIN CA 10 MG TABLET PO SCH ×2 (20:02→21:11)
[2021-08-25] MEDS: MELATONIN 5 MG TABLETS PO PRN (20:02)
[2021-08-25] MEDS: MONTELUKAST NA 10 MG TABLET PO SCH ×2 (20:02→21:11)
[2021-08-26 01:00] LABS: EPI CELLS 6 /uL (0-25.1); HYALINE CASTS 3 /uL (0-3.1); PH,URINE 7.5 (5.0-8.0); URINE APPEARANCE CLOUDY; URINE BACTERIA 3409 /uL (0-1359); URINE BILIRUBIN NEGATIVE (NEGATIVE); URINE COLOR DK YELLOW; URINE GLUCOSE (UA) NEGATIVE (NEGATIVE); URINE KETONE NEGATIVE (NEGATIVE); URINE LEUK ESTERASE 2+ (NEGATIVE); URINE NITRITE POSITIVE (NEGATIVE); URINE PROTEIN 1+ (NEGATIVE); URINE RBC 8 /uL (0-23.9); URINE WBC 223 /uL (0-25.8)
[2021-08-26] MEDS: LEVOTHYROXINE NA 100 MCG TABLET (FP) PO SCH (06:54)
[2021-08-26] MEDS: ACETAMINOPHEN 325 MG TABLET (FP) PO PRN (06:54)
[2021-08-26 08:41] LABS: BASO % 1.3 % (0-2.0); EOS % 5.3 % (0-4.5); HEMATOCRIT 24.9 % (32.4-45.2); HEMOGLOBIN 8.3 GM/dL (10.7-15.3); LYMPH % 9.3 % (8-40); MCH 33.5 pg (25.7-33.7); MCHC 33.5 g/dl (32.0-36.0); MEAN CELL VOLUME 100.1 fl (80-96); MEAN PLT VOLUME 5.9 fl (7.5-11.1); MONO % 8.2 % (3.8-10.2); NEUT % 75.9 % (42.8-82.8); PLATELET COUNT 595 10^3/uL (134-434); RBC 2.49 M/mm3 (3.60-5.2); RDW 14.9 % (11.6-15.6); WHITE BLOOD COUNT 6.3 K/mm3 (4.0-10.0)
[2021-08-26 08:52] LABS: MAGNESIUM 1.9 mg/dL (1.8-2.4)
[2021-08-26 08:54] LABS: CALCIUM 8.8 mg/dL (8.5-10.1)
[2021-08-26 08:55] LABS: CREATININE 0.3 mg/dL (0.55-1.3)
[2021-08-26] MEDS ORDERED: cefTRIAXone SODIUM 1 GM VIAL ONE ×2 (09:25→10:36)
[2021-08-26] MEDS ORDERED: DEXTROSE 5%-WATER - 50 ML IVPB ONE (10:36)
[2021-08-26] MEDS: LOSARTAN POTASSIUM 50 MG TABLET PO SCH (10:40)
[2021-08-26] MEDS: sulfaSALAzine 500 MG TABLET PO SCH ×3 (10:40→17:32)
[2021-08-26] MEDS: FERROUS SO4 325 MG TABLET (FP) PO SCH (10:40)
[2021-08-26] MEDS: amLODIPine BESYLATE 5 MG TABLET (FP) PO SCH (10:40)
[2021-08-26] MEDS: ASCORBIC ACID 500 MG TABLET (FP) PO SCH (10:40)
[2021-08-26] MEDS: SENNOSIDES 8.6MG TABLET (FP) PO SCH (10:40)
[2021-08-26] MEDS: ZINC SULFATE 220 MG CAPSULE (FP) PO SCH (10:40)
[2021-08-26] MEDS: MULTIVITAMINS (DAILY MVI) TABLET (FP) PO SCH (10:40)
[2021-08-26] MEDS: AMINO ACIDS/PROTEIN HYDROLYS 30 ML LIQUID.PKT PO SCH ×2 (10:41→17:32)
[2021-08-26] MEDS: CALCIUM CARBONATE 650 MG TABLET PO SCH ×2 (10:41→21:46)
[2021-08-26] MEDS: CEFTRIAXONE 1 GM in DEXTROSE 5%-WATER - 50 ML IVPB SCH (10:41)
[2021-08-26] MEDS: POLYETHYLENE GLYCOL (HEALTHYLAX) 3350 17 GM PACKET PO SCH (10:41)
[2021-08-26] MEDS: ZINC OXIDE 20% TOPICAL OINTMENT 30 GM TUBE TP SCH ×2 (10:42→21:47)
[2021-08-26] MEDS: PANTOPRAZOLE 20 MG TABLET PO SCH (10:43)
[2021-08-26] MEDS: BUDESONIDE/FORMETEROL FUMARATE 160/4.5 mcg INHALER IH SCH ×2 (10:51→21:42)
[2021-08-26] MEDS ORDERED: methylPREDNISolone ACET (DEPO) 80 MG/1 ML VIAL IAR ONE (12:14)
[2021-08-26] MEDS ORDERED: LIDOCAINE 1% P/F 10 MG/ML VIAL SQ ONE (12:14)
[2021-08-26] MEDS: MONTELUKAST NA 10 MG TABLET PO SCH (21:42)
[2021-08-26] MEDS: ROSUVASTATIN CA 10 MG TABLET PO SCH (21:42)
[2021-08-26] MEDS ORDERED: LIDOCAINE PATCH REMOVAL MC SCH (22:00)
[2021-08-26] MEDS ORDERED: LIDOCAINE 5% TOPICAL PATCH TP ONE (22:37)
[2021-08-27] MEDS: LEVOTHYROXINE NA 100 MCG TABLET (FP) PO SCH (06:06)
[2021-08-27] MEDS ORDERED: cefTRIAXone SODIUM 1 GM VIAL ONE (09:40)
[2021-08-27] MEDS ORDERED: DEXTROSE 5%-WATER - 50 ML IVPB ONE (09:41)
[2021-08-27] MEDS: CALCIUM CARBONATE 650 MG TABLET PO SCH (10:35)
[2021-08-27] MEDS: AMINO ACIDS/PROTEIN HYDROLYS 30 ML LIQUID.PKT PO SCH (10:35)
[2021-08-27] MEDS: CEFTRIAXONE 1 GM in DEXTROSE 5%-WATER - 50 ML IVPB SCH (10:36)
[2021-08-27] MEDS: SENNOSIDES 8.6MG TABLET (FP) PO SCH (10:36)
[2021-08-27] MEDS: PANTOPRAZOLE 20 MG TABLET PO SCH (10:37)
[2021-08-27] MEDS: ASCORBIC ACID 500 MG TABLET (FP) PO SCH (10:37)
[2021-08-27] MEDS: ZINC SULFATE 220 MG CAPSULE (FP) PO SCH (10:37)
[2021-08-27] MEDS: FERROUS SO4 325 MG TABLET (FP) PO SCH (10:37)
[2021-08-27] MEDS: amLODIPine BESYLATE 5 MG TABLET (FP) PO SCH (10:37)
[2021-08-27] MEDS: POLYETHYLENE GLYCOL (HEALTHYLAX) 3350 17 GM PACKET PO SCH (10:37)
[2021-08-27] MEDS: LOSARTAN POTASSIUM 50 MG TABLET PO SCH (10:37)
[2021-08-27] MEDS: MULTIVITAMINS (DAILY MVI) TABLET (FP) PO SCH (10:37)
[2021-08-27] MEDS: ZINC OXIDE 20% TOPICAL OINTMENT 30 GM TUBE TP SCH (10:38)
[2021-08-27] MEDS: BUDESONIDE/FORMETEROL FUMARATE 160/4.5 mcg INHALER IH SCH (10:38)
[2021-08-27] MEDS: sulfaSALAzine 500 MG TABLET PO SCH ×2 (10:38→12:27)
[2021-08-27 13:53] VITALS: BP 116/58; PULSE 88; TEMP 97.7
== END 2021-08-27 15:18 | DRG 389 ==
LOC: JER 08:33 → INTOOBSV 14:30 → JERBED 14:30 → J7W 18:08 → OBSVTOIN 08-18 11:38 → J7W 08-26 18:15
PROVIDERS: ADMIT Internal Medicine
PROC: 3E0U33Z Introduction of Anti-inflammatory into Joints, Percutaneous Approach (ICD-10-PCS; principal; 2021-08-26)
PROC: 3E0U3BZ Introduction of Anesthetic Agent into Joints, Percutaneous Approach (ICD-10-PCS; 2021-08-26)
DX: K56.41 Fecal impaction (principal); K51.90 Ulcerative colitis, unspecified, without complications; E44.0 Moderate protein-calorie malnutrition; N39.0 Urinary tract infection, site not specified; J44.9 Chronic obstructive pulmonary disease, unspecified; I10 Essential (primary) hypertension; E78.5 Hyperlipidemia, unspecified; E83.42 Hypomagnesemia; E87.6 Hypokalemia; D64.89 Other specified anemias; E03.9 Hypothyroidism, unspecified; L89.516 Pressure-induced deep tissue damage of right ankle; L89.152 Pressure ulcer of sacral region, stage 2; S90.811A Abrasion, right foot, initial encounter; M17.11 Unilateral primary osteoarthritis, right knee; M11.261 Other chondrocalcinosis, right knee; Z68.22 Body mass index [BMI] 22.0-22.9, adult; B95.2 Enterococcus as the cause of diseases classified elsewhere; R50.9 Fever, unspecified
CPT/HCPCS: 36415; 71045-TC-FY; 71250-TC; 73560-TC-RT-FY; 73610-TC-RT-FY; 73630-TC-RT-FY; 73700-TC-RT; 73721-RT-TC; 74177-TC; 80048; 80053; 81003; 82272; 82607; 82728; 82747; 83540; 83550; 83735; 84466; 84550; 85014; 85025; 85027; 85651; 86140; 87086; 87186; 94010; 97116-GP; 97161-GP; 99285-25; C9803-CS; G0378; Q9967; U0003; U0005

== ENCOUNTER 2021-10-18 14:26 | Inpatient (IN) | payer OTHER, MEDICARE ==
[2021-10-18] MEDS ORDERED: ACETAMINOPHEN 500 MG TABLET (FP) PO ONE (16:01)
[2021-10-18] MEDS ORDERED: VANCOMYCIN 1 GM in D5W (PRE-DOCKED) 1,000 MG/250 ML IVPB ONE (16:31)
[2021-10-18] MEDS ORDERED: ACETAMINOPHEN 325 MG TABLET (FP) ONE (16:34)
[2021-10-18] MEDS ORDERED: VANCOMYCIN 1 GRAM (PRE-DOCKED) 1,000 MG/250 ML BAG IVPB ONE (16:44)
[2021-10-18] MEDS ORDERED: VANCOMYCIN 1 GM/200 ML PREMIX BAG IVPB ONE (17:00)
[2021-10-18 17:34] LABS: BASO % 1.2 % (0-2.0); EOS % 8.6 % (0-4.5); HEMATOCRIT 24.9 % (32.4-45.2); HEMOGLOBIN 8.2 GM/dL (10.7-15.3); LYMPH % 12.1 % (8-40); MCH 30.4 pg (25.7-33.7); MCHC 32.9 g/dl (32.0-36.0); MEAN CELL VOLUME 92.4 fl (80-96); MEAN PLT VOLUME 6.1 fl (7.5-11.1); MONO % 10.4 % (3.8-10.2); NEUT % 67.7 % (42.8-82.8); PLATELET COUNT 393 10^3/uL (134-434); RBC 2.69 M/mm3 (3.60-5.2); RDW 18.2 % (11.6-15.6); WHITE BLOOD COUNT 6.5 K/mm3 (4.0-10.0)
[2021-10-18 17:54] LABS: ALBUMIN 2.4 g/dl (3.4-5.0); BLOOD UREA NITROGEN 8.8 mg/dL (7-18); CALCIUM 9.3 mg/dL (8.5-10.1)
[2021-10-18 17:57] LABS: CREATININE 0.4 mg/dL (0.55-1.3)
[2021-10-18 17:59] LABS: BILIRUBIN,TOTAL 0.7 mg/dL (0.2-1); TOT PROT 6.2 g/dl (6.4-8.2)
[2021-10-18] MEDS ORDERED: ceFAZolin 2 GRAM PREMIX BAG IVPB SCH (20:45)
[2021-10-18] MEDS ORDERED: traMADol HCL 50 MG TABLET PO PRN (20:49)
[2021-10-18 21:24] LABS: MAGNESIUM 1.7 mg/dL (1.8-2.4)
[2021-10-18 21:28] LABS: PHOSPHOROUS 3.2 mg/dL (2.5-4.9)
[2021-10-18] MEDS ORDERED: ACETAMINOPHEN 325 MG TABLET (FP) PO PRN (21:41)
[2021-10-18] MEDS: CEFAZOLIN 2 GM in DEXTROSE 5%-WATER - 100 ML IVPB SCH (22:12)
[2021-10-18] MEDS: LIDOCAINE PATCH REMOVAL MC SCH ×2 (22:13→22:22)
[2021-10-18] MEDS: LIDOCAINE 5% TOPICAL PATCH TP SCH (22:13)
[2021-10-18] MEDS: ROSUVASTATIN CA 10 MG TABLET PO SCH (22:13)
[2021-10-18] MEDS: METHYL SALICYLATE/MENTHOL OINT 30 GM TUBE TP SCH (22:25)
[2021-10-18 22:58] VITALS: BMI 23.3
[2021-10-18] MEDS ORDERED: MAGNESIUM SULF 50% (8.12 MEQ/2 ML-1 GM VIAL) IVPB ONE (23:10)
[2021-10-18] MEDS ORDERED: MAGNESIUM 1GM/D5W - 1 GM/100 ML IVPB IVPB ONE (23:30)
[2021-10-19] MEDS ORDERED: ALBUTEROL SO4 2.5/IPRATROPIUM 0.5 INH SOL 3 ML VIAL.NEB. NEB PRN (03:27)
[2021-10-19] MEDS: CEFAZOLIN 2 GM in DEXTROSE 5%-WATER - 100 ML IVPB SCH ×3 (03:45→20:50)
[2021-10-19] MEDS: traMADol HCL 50 MG TABLET PO PRN ×2 (03:50→18:47)
[2021-10-19 05:01] LABS: EPI CELLS 22 /uL (0-25.1); HYALINE CASTS 1 /uL (0-3.1); PH,URINE 7.5 (5.0-8.0); URINE APPEARANCE CLEAR; URINE BACTERIA 49 /uL (0-1359); URINE BILIRUBIN NEGATIVE (NEGATIVE); URINE COLOR YELLOW; URINE GLUCOSE (UA) NEGATIVE (NEGATIVE); URINE KETONE NEGATIVE (NEGATIVE); URINE LEUK ESTERASE 2+ (NEGATIVE); URINE NITRITE NEGATIVE (NEGATIVE); URINE PROTEIN NEGATIVE (NEGATIVE); URINE RBC 11 /uL (0-23.9); URINE UROBILINOGEN 0.2 mg/dL (0.2-1.0); URINE WBC 52 /uL (0-25.8)
[2021-10-19] MEDS ORDERED: KETOROLAC TROMETHAMINE 15 MG/ML VIAL IVPUSH ONE (05:45)
[2021-10-19] MEDS: LEVOTHYROXINE NA 50 MCG TABLET (FP) PO SCH (06:11)
[2021-10-19] MEDS ORDERED: LEVOTHYROXINE NA 100 MCG TABLET (FP) PO SCH (07:00)
[2021-10-19] MEDS ORDERED: oxyCODONE HCL 5 MG TABLET PO ONE (09:00)
[2021-10-19 09:27] LABS: BASO % 1.5 % (0-2.0); EOS % 7.4 % (0-4.5); HEMATOCRIT 25.5 % (32.4-45.2); HEMOGLOBIN 8.5 GM/dL (10.7-15.3); LYMPH % 11.2 % (8-40); MCH 30.9 pg (25.7-33.7); MCHC 33.4 g/dl (32.0-36.0); MEAN CELL VOLUME 92.5 fl (80-96); MEAN PLT VOLUME 6.4 fl (7.5-11.1); MONO % 10.4 % (3.8-10.2); NEUT % 69.5 % (42.8-82.8); PLATELET COUNT 421 10^3/uL (134-434); RBC 2.76 M/mm3 (3.60-5.2); WHITE BLOOD COUNT 6.2 K/mm3 (4.0-10.0)
[2021-10-19] MEDS: LIDOCAINE 5% TOPICAL PATCH TP SCH (09:57)
[2021-10-19] MEDS: amLODIPine BESYLATE 5 MG TABLET (FP) PO SCH (09:57)
[2021-10-19] MEDS: sulfaSALAzine 500 MG TABLET PO SCH ×3 (09:57→16:55)
[2021-10-19] MEDS: HYDROCHLOROTHIAZIDE 25 MG TABLET (FP) PO SCH (09:57)
[2021-10-19] MEDS: ATENOLOL 50 MG TABLET (FP) PO SCH (09:58)
[2021-10-19] MEDS: BUDESONIDE/FORMETEROL FUMARATE 160/4.5 mcg INHALER IH SCH ×2 (09:58→21:44)
[2021-10-19] MEDS: LOSARTAN POTASSIUM 50 MG TABLET PO SCH (09:59)
[2021-10-19] MEDS: METHYL SALICYLATE/MENTHOL OINT 30 GM TUBE TP SCH (09:59)
[2021-10-19 10:00] LABS: CALCIUM 8.8 mg/dL (8.5-10.1)
[2021-10-19] MEDS ORDERED: BUDESONIDE/FORMETEROL FUMARATE 160/4.5 mcg INHALER IH SCH (10:00)
[2021-10-19] MEDS ORDERED: MONTELUKAST NA 10 MG TABLET PO SCH (10:00)
[2021-10-19] MEDS ORDERED: PANTOPRAZOLE 20 MG TABLET PO SCH (10:00)
[2021-10-19 10:01] LABS: ALBUMIN 2.5 g/dl (3.4-5.0); BLOOD UREA NITROGEN 7.9 mg/dL (7-18); MAGNESIUM 1.9 mg/dL (1.8-2.4)
[2021-10-19] MEDS: ENOXAPARIN NA (PORCINE) 40 MG/0.4 ML DISP.SYRIN SQ SCH (10:01)
[2021-10-19 10:03] LABS: CREATININE 0.4 mg/dL (0.55-1.3)
[2021-10-19 10:05] LABS: BILIRUBIN,TOTAL 0.8 mg/dL (0.2-1); TOT PROT 6.5 g/dl (6.4-8.2)
[2021-10-19 10:07] LABS: PHOSPHOROUS 2.8 mg/dL (2.5-4.9)
[2021-10-19] MEDS: ROSUVASTATIN CA 10 MG TABLET PO SCH (21:44)
[2021-10-19] MEDS: LIDOCAINE PATCH REMOVAL MC SCH (21:48)
[2021-10-19] MEDS: ACETAMINOPHEN 325 MG TABLET (FP) PO PRN (23:47)
[2021-10-20] MEDS: CEFAZOLIN 2 GM in DEXTROSE 5%-WATER - 100 ML IVPB SCH ×2 (05:40→13:30)
[2021-10-20] MEDS: LEVOTHYROXINE NA 50 MCG TABLET (FP) PO SCH (06:28)
[2021-10-20 09:00] LABS: BASO % 1.7 % (0-2.0); EOS % 9.7 % (0-4.5); HEMATOCRIT 24.5 % (32.4-45.2); MCH 30.3 pg (25.7-33.7); MCHC 32.5 g/dl (32.0-36.0); MEAN CELL VOLUME 93.2 fl (80-96); MEAN PLT VOLUME 6.5 fl (7.5-11.1); MONO % 13.2 % (3.8-10.2); NEUT % 61.4 % (42.8-82.8); PLATELET COUNT 393 10^3/uL (134-434); RBC 2.63 M/mm3 (3.60-5.2); RDW 18.6 % (11.6-15.6); WHITE BLOOD COUNT 5.4 K/mm3 (4.0-10.0)
[2021-10-20] MEDS: sulfaSALAzine 500 MG TABLET PO SCH ×3 (09:00→16:56)
[2021-10-20 09:26] LABS: ALBUMIN 2.1 g/dl (3.4-5.0); BLOOD UREA NITROGEN 7.3 mg/dL (7-18); CALCIUM 8.1 mg/dL (8.5-10.1); MAGNESIUM 1.6 mg/dL (1.8-2.4)
[2021-10-20 09:28] LABS: BILIRUBIN,TOTAL 0.2 mg/dL (0.2-1)
[2021-10-20 09:29] LABS: CREATININE 0.4 mg/dL (0.55-1.3)
[2021-10-20 09:32] LABS: TOT PROT 5.8 g/dl (6.4-8.2)
[2021-10-20] MEDS: amLODIPine BESYLATE 5 MG TABLET (FP) PO SCH (10:49)
[2021-10-20] MEDS: ATENOLOL 50 MG TABLET (FP) PO SCH (10:49)
[2021-10-20] MEDS: HYDROCHLOROTHIAZIDE 25 MG TABLET (FP) PO SCH (10:49)
[2021-10-20] MEDS: ENOXAPARIN NA (PORCINE) 40 MG/0.4 ML DISP.SYRIN SQ SCH (10:49)
[2021-10-20] MEDS: LIDOCAINE 5% TOPICAL PATCH TP SCH (10:50)
[2021-10-20] MEDS: BUDESONIDE/FORMETEROL FUMARATE 160/4.5 mcg INHALER IH SCH ×2 (10:51→21:00)
[2021-10-20] MEDS: LOSARTAN POTASSIUM 50 MG TABLET PO SCH (10:57)
[2021-10-20] MEDS: METHYL SALICYLATE/MENTHOL OINT 30 GM TUBE TP SCH (10:59)
[2021-10-20 12:01] LABS: RETICULOCYTES 1.08 % (0.5-1.5)
[2021-10-20] MEDS ORDERED: DEXTROSE 5%-WATER - 50 ML IVPB ONE (12:36)
[2021-10-20] MEDS ORDERED: cefTRIAXone SODIUM 1 GM VIAL ONE (12:36)
[2021-10-20] MEDS: CEFTRIAXONE 1 GM in DEXTROSE 5%-WATER - 50 ML IVPB SCH (13:00)
[2021-10-20] MEDS ORDERED: POTASSIUM CHLORIDE TABS 20 MEQ TABLET.ER (FP) PO ONE (14:07)
[2021-10-20] MEDS ORDERED: MAGNESIUM SULF 50% (8.12 MEQ/2 ML-1 GM VIAL) IVPB ONE (14:17)
[2021-10-20] MEDS ORDERED: MAGNESIUM OXIDE 400 MG TABLET (FP) PO ONE (14:18)
[2021-10-20] MEDS: ACETAMINOPHEN 325 MG TABLET (FP) PO PRN (21:00)
[2021-10-20] MEDS: ROSUVASTATIN CA 10 MG TABLET PO SCH (21:00)
[2021-10-20] MEDS: LIDOCAINE PATCH REMOVAL MC SCH (21:00)
[2021-10-21] MEDS: CEFAZOLIN 2 GM in DEXTROSE 5%-WATER - 100 ML IVPB SCH (01:18)
[2021-10-21] MEDS: LEVOTHYROXINE NA 50 MCG TABLET (FP) PO SCH (07:19)
[2021-10-21] MEDS: sulfaSALAzine 500 MG TABLET PO SCH ×3 (08:00→17:46)
[2021-10-21 09:13] LABS: HEMATOCRIT 25.5 % (32.4-45.2); HEMOGLOBIN 8.7 GM/dL (10.7-15.3); MCH 31.3 pg (25.7-33.7); MCHC 34.2 g/dl (32.0-36.0); MEAN CELL VOLUME 91.4 fl (80-96); MEAN PLT VOLUME 6.3 fl (7.5-11.1); PLATELET COUNT 397 10^3/uL (134-434); RBC 2.79 M/mm3 (3.60-5.2); RDW 18.4 % (11.6-15.6); WHITE BLOOD COUNT 5.7 K/mm3 (4.0-10.0)
[2021-10-21 09:27] LABS: ALBUMIN 2.2 g/dl (3.4-5.0); BLOOD UREA NITROGEN 5.6 mg/dL (7-18); CALCIUM 8.6 mg/dL (8.5-10.1); MAGNESIUM 1.8 mg/dL (1.8-2.4)
[2021-10-21 09:30] LABS: CREATININE 0.3 mg/dL (0.55-1.3); PHOSPHOROUS 2.5 mg/dL (2.5-4.9)
[2021-10-21 09:32] LABS: BILIRUBIN,TOTAL 0.3 mg/dL (0.2-1); TOT PROT 6.2 g/dl (6.4-8.2)
[2021-10-21] MEDS ORDERED: cefTRIAXone SODIUM 1 GM VIAL ONE (10:23)
[2021-10-21] MEDS ORDERED: DEXTROSE 5%-WATER - 50 ML IVPB ONE (10:23)
[2021-10-21] MEDS: LOSARTAN POTASSIUM 50 MG TABLET PO SCH (10:52)
[2021-10-21] MEDS: MULTIVITAMINS (DAILY MVI) TABLET (FP) PO SCH (10:52)
[2021-10-21] MEDS: ZINC SULFATE 220 MG CAPSULE (FP) PO SCH (10:52)
[2021-10-21] MEDS: ATENOLOL 50 MG TABLET (FP) PO SCH (10:52)
[2021-10-21] MEDS: amLODIPine BESYLATE 5 MG TABLET (FP) PO SCH (10:52)
[2021-10-21] MEDS: ASCORBIC ACID 500 MG TABLET (FP) PO SCH (10:53)
[2021-10-21] MEDS: HYDROCHLOROTHIAZIDE 25 MG TABLET (FP) PO SCH (10:53)
[2021-10-21] MEDS: METHYL SALICYLATE/MENTHOL OINT 30 GM TUBE TP SCH (10:53)
[2021-10-21] MEDS: ENOXAPARIN NA (PORCINE) 40 MG/0.4 ML DISP.SYRIN SQ SCH (10:54)
[2021-10-21] MEDS: BUDESONIDE/FORMETEROL FUMARATE 160/4.5 mcg INHALER IH SCH ×2 (10:54→21:12)
[2021-10-21] MEDS: CEFTRIAXONE 1 GM in DEXTROSE 5%-WATER - 50 ML IVPB SCH (10:55)
[2021-10-21] MEDS: LIDOCAINE 5% TOPICAL PATCH TP SCH (10:55)
[2021-10-21] MEDS: AMINO ACIDS/PROTEIN HYDROLYS 30 ML LIQUID.PKT PO SCH (10:59)
[2021-10-21] MEDS ORDERED: POTASSIUM CHLORIDE TABS 20 MEQ TABLET.ER (FP) PO ONE (11:51)
[2021-10-21] MEDS: POTASSIUM CHLORIDE TABS 20 MEQ TABLET.ER (FP) PO ONE (17:44)
[2021-10-21] MEDS: traMADol HCL 50 MG TABLET PO PRN (18:06)
[2021-10-21] MEDS: ROSUVASTATIN CA 10 MG TABLET PO SCH (21:11)
[2021-10-21] MEDS: LIDOCAINE PATCH REMOVAL MC SCH (21:12)
[2021-10-21] MEDS: MELATONIN 5 MG TABLETS PO PRN (21:12)
[2021-10-21] MEDS: ACETAMINOPHEN 325 MG TABLET (FP) PO PRN (21:15)
[2021-10-21] MEDS: KETOROLAC TROMETHAMINE 15 MG/ML VIAL IVPUSH PRN (21:43)
[2021-10-22] MEDS: KETOROLAC TROMETHAMINE 15 MG/ML VIAL IVPUSH PRN ×2 (03:47→21:08)
[2021-10-22] MEDS: LEVOTHYROXINE NA 50 MCG TABLET (FP) PO SCH (06:07)
[2021-10-22] MEDS: traMADol HCL 50 MG TABLET PO PRN (06:57)
[2021-10-22 09:19] LABS: BASO % 1.3 % (0-2.0); EOS % 4.8 % (0-4.5); HEMATOCRIT 23.7 % (32.4-45.2); HEMOGLOBIN 7.9 GM/dL (10.7-15.3); LYMPH % 11.8 % (8-40); MCH 30.5 pg (25.7-33.7); MCHC 33.3 g/dl (32.0-36.0); MEAN CELL VOLUME 91.5 fl (80-96); MEAN PLT VOLUME 6.6 fl (7.5-11.1); MONO % 14.5 % (3.8-10.2); NEUT % 67.6 % (42.8-82.8); PLATELET COUNT 394 10^3/uL (134-434); RBC 2.59 M/mm3 (3.60-5.2); RDW 17.4 % (11.6-15.6); WHITE BLOOD COUNT 6.6 K/mm3 (4.0-10.0)
[2021-10-22 09:37] LABS: MAGNESIUM 1.7 mg/dL (1.8-2.4)
[2021-10-22 09:41] LABS: PHOSPHOROUS 2.8 mg/dL (2.5-4.9)
[2021-10-22] MEDS ORDERED: cefTRIAXone SODIUM 1 GM VIAL ONE (09:49)
[2021-10-22] MEDS ORDERED: DEXTROSE 5%-WATER - 50 ML IVPB ONE (09:50)
[2021-10-22] MEDS: LIDOCAINE 5% TOPICAL PATCH TP SCH (09:57)
[2021-10-22] MEDS: CEFTRIAXONE 1 GM in DEXTROSE 5%-WATER - 50 ML IVPB SCH (09:57)
[2021-10-22] MEDS: ENOXAPARIN NA (PORCINE) 40 MG/0.4 ML DISP.SYRIN SQ SCH (09:58)
[2021-10-22] MEDS: MULTIVITAMINS (DAILY MVI) TABLET (FP) PO SCH (09:58)
[2021-10-22] MEDS: AMINO ACIDS/PROTEIN HYDROLYS 30 ML LIQUID.PKT PO SCH (09:58)
[2021-10-22] MEDS: ATENOLOL 50 MG TABLET (FP) PO SCH (09:59)
[2021-10-22] MEDS: LOSARTAN POTASSIUM 50 MG TABLET PO SCH (09:59)
[2021-10-22] MEDS: ASCORBIC ACID 500 MG TABLET (FP) PO SCH (09:59)
[2021-10-22] MEDS: amLODIPine BESYLATE 5 MG TABLET (FP) PO SCH (09:59)
[2021-10-22] MEDS: ZINC SULFATE 220 MG CAPSULE (FP) PO SCH (09:59)
[2021-10-22] MEDS: HYDROCHLOROTHIAZIDE 25 MG TABLET (FP) PO SCH (09:59)
[2021-10-22] MEDS: sulfaSALAzine 500 MG TABLET PO SCH ×3 (10:00→16:54)
[2021-10-22] MEDS: METHYL SALICYLATE/MENTHOL OINT 30 GM TUBE TP SCH (10:01)
[2021-10-22] MEDS: BUDESONIDE/FORMETEROL FUMARATE 160/4.5 mcg INHALER IH SCH ×2 (10:02→21:08)
[2021-10-22] MEDS ORDERED: MAGNESIUM OXIDE 400 MG TABLET (FP) PO ONE (14:33)
[2021-10-22 14:46] LABS: CALCIUM 8.9 mg/dL (8.5-10.1)
[2021-10-22 14:47] LABS: ALBUMIN 2.2 g/dl (3.4-5.0); BLOOD UREA NITROGEN 11.1 mg/dL (7-18)
[2021-10-22 14:50] LABS: CREATININE 0.4 mg/dL (0.55-1.3)
[2021-10-22 14:52] LABS: BILIRUBIN,TOTAL 0.4 mg/dL (0.2-1); TOT PROT 6.1 g/dl (6.4-8.2)
[2021-10-22] MEDS: LIDOCAINE PATCH REMOVAL MC SCH (21:08)
[2021-10-22] MEDS: ROSUVASTATIN CA 10 MG TABLET PO SCH (21:08)
[2021-10-22] MEDS: MELATONIN 5 MG TABLETS PO PRN (21:08)
[2021-10-22] MEDS ORDERED: MAG HYDROX/AL HYDROX/SIMETH 30 ML UNIT-DOSE CUP PO PRN (23:19)
[2021-10-23] MEDS: KETOROLAC TROMETHAMINE 15 MG/ML VIAL IVPUSH PRN ×2 (05:45→21:37)
[2021-10-23 06:39] LABS: EPI CELLS 12 /uL (0-25.1); HYALINE CASTS 0 /uL (0-3.1); PH,URINE 6.5 (5.0-8.0); URINE APPEARANCE CLEAR; URINE BACTERIA 3 /uL (0-1359); URINE BILIRUBIN NEGATIVE (NEGATIVE); URINE COLOR DK YELLOW; URINE GLUCOSE (UA) NEGATIVE (NEGATIVE); URINE KETONE NEGATIVE (NEGATIVE); URINE LEUK ESTERASE TRACE (NEGATIVE); URINE NITRITE NEGATIVE (NEGATIVE); URINE PROTEIN NEGATIVE (NEGATIVE); URINE RBC 20 /uL (0-23.9); URINE UROBILINOGEN 0.2 mg/dL (0.2-1.0); URINE WBC 14 /uL (0-25.8)
[2021-10-23] MEDS: LEVOTHYROXINE NA 50 MCG TABLET (FP) PO SCH (07:30)
[2021-10-23] MEDS: amLODIPine BESYLATE 5 MG TABLET (FP) PO SCH (09:48)
[2021-10-23] MEDS: ASCORBIC ACID 500 MG TABLET (FP) PO SCH (09:48)
[2021-10-23] MEDS: LOSARTAN POTASSIUM 50 MG TABLET PO SCH (09:48)
[2021-10-23] MEDS: ZINC SULFATE 220 MG CAPSULE (FP) PO SCH (09:48)
[2021-10-23] MEDS: HYDROCHLOROTHIAZIDE 25 MG TABLET (FP) PO SCH (09:48)
[2021-10-23] MEDS: ATENOLOL 50 MG TABLET (FP) PO SCH (09:48)
[2021-10-23] MEDS: MULTIVITAMINS (DAILY MVI) TABLET (FP) PO SCH (09:48)
[2021-10-23] MEDS: METHYL SALICYLATE/MENTHOL OINT 30 GM TUBE TP SCH (09:52)
[2021-10-23] MEDS: AMINO ACIDS/PROTEIN HYDROLYS 30 ML LIQUID.PKT PO SCH (09:53)
[2021-10-23] MEDS: sulfaSALAzine 500 MG TABLET PO SCH ×3 (09:53→17:18)
[2021-10-23] MEDS: BUDESONIDE/FORMETEROL FUMARATE 160/4.5 mcg INHALER IH SCH ×2 (09:56→21:37)
[2021-10-23] MEDS: ENOXAPARIN NA (PORCINE) 40 MG/0.4 ML DISP.SYRIN SQ SCH (09:58)
[2021-10-23] MEDS: LIDOCAINE 5% TOPICAL PATCH TP SCH (09:58)
[2021-10-23] MEDS ORDERED: MAGNESIUM OXIDE 400 MG TABLET (FP) PO ONE (11:35)
[2021-10-23 12:25] LABS: HEMATOCRIT 26.8 % (32.4-45.2); HEMOGLOBIN 8.9 GM/dL (10.7-15.3); MCH 30.4 pg (25.7-33.7); MCHC 33.3 g/dl (32.0-36.0); MEAN CELL VOLUME 91.3 fl (80-96); MEAN PLT VOLUME 6.5 fl (7.5-11.1); PLATELET COUNT 504 10^3/uL (134-434); RBC 2.93 M/mm3 (3.60-5.2); RDW 18.2 % (11.6-15.6); WHITE BLOOD COUNT 6.3 K/mm3 (4.0-10.0)
[2021-10-23 12:35] LABS: BLOOD UREA NITROGEN 18.1 mg/dL (7-18); MAGNESIUM 2.1 mg/dL (1.8-2.4)
[2021-10-23 12:38] LABS: CREATININE 0.5 mg/dL (0.55-1.3); PHOSPHOROUS 3.3 mg/dL (2.5-4.9)
[2021-10-23 13:07] LABS: SARS-CoV-2 NAA Not Detected (Not Detected)
[2021-10-23] MEDS ORDERED: SODIUM CHLORIDE 1,000 ML IV SCH (14:00)
[2021-10-23 17:15] LABS: BASO % 1.3 % (0-2.0); EOS % 10.3 % (0-4.5); HEMATOCRIT 25.3 % (32.4-45.2); HEMOGLOBIN 8.4 GM/dL (10.7-15.3); LYMPH % 13.1 % (8-40); MCH 30.2 pg (25.7-33.7); MCHC 33.1 g/dl (32.0-36.0); MEAN CELL VOLUME 91.1 fl (80-96); MEAN PLT VOLUME 6.6 fl (7.5-11.1); MONO % 10.6 % (3.8-10.2); NEUT % 64.7 % (42.8-82.8); PLATELET COUNT 433 10^3/uL (134-434); RBC 2.78 M/mm3 (3.60-5.2); WHITE BLOOD COUNT 6.3 K/mm3 (4.0-10.0)
[2021-10-23] MEDS: AMOX TR/POT CLAV 875MG/125MG TABLETS (FP) PO SCH (17:17)
[2021-10-23 17:29] LABS: CALCIUM 8.7 mg/dL (8.5-10.1)
[2021-10-23 17:30] LABS: ALBUMIN 2.2 g/dl (3.4-5.0); BLOOD UREA NITROGEN 16.9 mg/dL (7-18)
[2021-10-23 17:33] LABS: CREATININE 0.5 mg/dL (0.55-1.3)
[2021-10-23 17:35] LABS: BILIRUBIN,TOTAL 0.1 mg/dL (0.2-1)
[2021-10-23] MEDS: ROSUVASTATIN CA 10 MG TABLET PO SCH (21:36)
[2021-10-23] MEDS: LIDOCAINE PATCH REMOVAL MC SCH (21:36)
[2021-10-24] MEDS: LEVOTHYROXINE NA 50 MCG TABLET (FP) PO SCH (06:20)
[2021-10-24 07:51] LABS: BASO % 2.5 % (0-2.0); HEMATOCRIT 24.2 % (32.4-45.2); HEMOGLOBIN 8.1 GM/dL (10.7-15.3); LYMPH % 17.2 % (8-40); MCH 30.2 pg (25.7-33.7); MCHC 33.3 g/dl (32.0-36.0); MEAN CELL VOLUME 90.5 fl (80-96); MEAN PLT VOLUME 6.3 fl (7.5-11.1); MONO % 11.2 % (3.8-10.2); NEUT % 57.1 % (42.8-82.8); PLATELET COUNT 402 10^3/uL (134-434); RBC 2.67 M/mm3 (3.60-5.2); RDW 18.1 % (11.6-15.6); WHITE BLOOD COUNT 4.6 K/mm3 (4.0-10.0)
[2021-10-24 08:00] LABS: CALCIUM 8.8 mg/dL (8.5-10.1)
[2021-10-24 08:01] LABS: ALBUMIN 2.1 g/dl (3.4-5.0)
[2021-10-24 08:03] LABS: PHOSPHOROUS 2.7 mg/dL (2.5-4.9)
[2021-10-24 08:04] LABS: CREATININE 0.3 mg/dL (0.55-1.3)
[2021-10-24 08:05] LABS: BILIRUBIN,TOTAL 0.2 mg/dL (0.2-1); TOT PROT 5.8 g/dl (6.4-8.2)
[2021-10-24] MEDS: AMINO ACIDS/PROTEIN HYDROLYS 30 ML LIQUID.PKT PO SCH (08:13)
[2021-10-24] MEDS: sulfaSALAzine 500 MG TABLET PO SCH ×3 (08:14→17:26)
[2021-10-24] MEDS: AMOX TR/POT CLAV 875MG/125MG TABLETS (FP) PO SCH ×2 (08:14→17:26)
[2021-10-24] MEDS: MULTIVITAMINS (DAILY MVI) TABLET (FP) PO SCH (10:02)
[2021-10-24] MEDS: LOSARTAN POTASSIUM 50 MG TABLET PO SCH (10:02)
[2021-10-24] MEDS: amLODIPine BESYLATE 5 MG TABLET (FP) PO SCH (10:02)
[2021-10-24] MEDS: HYDROCHLOROTHIAZIDE 25 MG TABLET (FP) PO SCH (10:03)
[2021-10-24] MEDS: ZINC SULFATE 220 MG CAPSULE (FP) PO SCH (10:03)
[2021-10-24] MEDS: ENOXAPARIN NA (PORCINE) 40 MG/0.4 ML DISP.SYRIN SQ SCH (10:03)
[2021-10-24] MEDS: METHYL SALICYLATE/MENTHOL OINT 30 GM TUBE TP SCH (10:03)
[2021-10-24] MEDS: ATENOLOL 50 MG TABLET (FP) PO SCH (10:03)
[2021-10-24] MEDS: LIDOCAINE 5% TOPICAL PATCH TP SCH (10:03)
[2021-10-24] MEDS: MINERAL OIL/PET HY-PHL TOPICAL OINTMENT 454 GM JAR TP SCH ×3 (10:03→21:16)
[2021-10-24] MEDS: ASCORBIC ACID 500 MG TABLET (FP) PO SCH (10:04)
[2021-10-24] MEDS: BUDESONIDE/FORMETEROL FUMARATE 160/4.5 mcg INHALER IH SCH ×2 (10:04→21:17)
[2021-10-24] MEDS: traMADol HCL 50 MG TABLET PO PRN ×2 (10:05→21:16)
[2021-10-24] MEDS ORDERED: COD LIVER OIL/ZINC OXIDE PASTE 56 GM TUBE TP PRN (11:50)
[2021-10-24] MEDS ORDERED: IRON SUCROSE INJECTION 200 MG in SODIUM CHLORIDE 90 ML IVPB ONE (17:00)
[2021-10-24] MEDS: LIDOCAINE PATCH REMOVAL MC SCH (21:16)
[2021-10-24] MEDS: MELATONIN 5 MG TABLETS PO PRN (21:16)
[2021-10-24] MEDS: ROSUVASTATIN CA 10 MG TABLET PO SCH (21:16)
[2021-10-25] MEDS: ACETAMINOPHEN 325 MG TABLET (FP) PO PRN (00:23)
[2021-10-25] MEDS: LEVOTHYROXINE NA 50 MCG TABLET (FP) PO SCH (06:07)
[2021-10-25] MEDS: AMINO ACIDS/PROTEIN HYDROLYS 30 ML LIQUID.PKT PO SCH (08:17)
[2021-10-25] MEDS: AMOX TR/POT CLAV 875MG/125MG TABLETS (FP) PO SCH ×2 (08:17→17:37)
[2021-10-25] MEDS: sulfaSALAzine 500 MG TABLET PO SCH ×3 (08:17→17:37)
[2021-10-25 08:33] LABS: HEMATOCRIT 25.1 % (32.4-45.2); HEMOGLOBIN 8.3 GM/dL (10.7-15.3); MCHC 33.1 g/dl (32.0-36.0); MEAN CELL VOLUME 90.5 fl (80-96); MEAN PLT VOLUME 6.5 fl (7.5-11.1); PLATELET COUNT 440 10^3/uL (134-434); RBC 2.77 M/mm3 (3.60-5.2); RDW 18.3 % (11.6-15.6); WHITE BLOOD COUNT 6.2 K/mm3 (4.0-10.0)
[2021-10-25 09:06] LABS: CALCIUM 9.3 mg/dL (8.5-10.1)
[2021-10-25 09:07] LABS: BLOOD UREA NITROGEN 8.2 mg/dL (7-18)
[2021-10-25 09:10] LABS: CREATININE 0.4 mg/dL (0.55-1.3)
[2021-10-25] MEDS: ZINC SULFATE 220 MG CAPSULE (FP) PO SCH (09:34)
[2021-10-25] MEDS: MULTIVITAMINS (DAILY MVI) TABLET (FP) PO SCH (09:34)
[2021-10-25] MEDS: ATENOLOL 50 MG TABLET (FP) PO SCH (09:34)
[2021-10-25] MEDS: ENOXAPARIN NA (PORCINE) 40 MG/0.4 ML DISP.SYRIN SQ SCH (09:34)
[2021-10-25] MEDS: METHYL SALICYLATE/MENTHOL OINT 30 GM TUBE TP SCH (09:35)
[2021-10-25] MEDS: HYDROCHLOROTHIAZIDE 25 MG TABLET (FP) PO SCH (09:35)
[2021-10-25] MEDS: ASCORBIC ACID 500 MG TABLET (FP) PO SCH (09:35)
[2021-10-25] MEDS: LOSARTAN POTASSIUM 50 MG TABLET PO SCH (09:35)
[2021-10-25] MEDS: amLODIPine BESYLATE 5 MG TABLET (FP) PO SCH (09:35)
[2021-10-25] MEDS: BUDESONIDE/FORMETEROL FUMARATE 160/4.5 mcg INHALER IH SCH ×2 (09:36→21:53)
[2021-10-25] MEDS: LIDOCAINE 5% TOPICAL PATCH TP SCH (09:36)
[2021-10-25] MEDS ORDERED: IRON SUCROSE INJECTION 200 MG in SODIUM CHLORIDE 90 ML IVPB ONE (10:00)
[2021-10-25] MEDS ORDERED: IRON SUCROSE INJECTION 100 MG in SODIUM CHLORIDE 95 ML IVPB ONE (11:00)
[2021-10-25] MEDS: MINERAL OIL/PET HY-PHL TOPICAL OINTMENT 454 GM JAR TP SCH ×2 (12:00→21:50)
[2021-10-25] MEDS: ROSUVASTATIN CA 10 MG TABLET PO SCH (21:44)
[2021-10-25] MEDS: traMADol HCL 50 MG TABLET PO PRN (21:48)
[2021-10-25] MEDS: MELATONIN 5 MG TABLETS PO PRN (21:49)
[2021-10-25] MEDS: LIDOCAINE PATCH REMOVAL MC SCH (21:50)
[2021-10-26] MEDS: LEVOTHYROXINE NA 50 MCG TABLET (FP) PO SCH (06:14)
[2021-10-26] MEDS: sulfaSALAzine 500 MG TABLET PO SCH ×3 (08:43→19:06)
[2021-10-26] MEDS: AMINO ACIDS/PROTEIN HYDROLYS 30 ML LIQUID.PKT PO SCH (08:43)
[2021-10-26] MEDS: AMOX TR/POT CLAV 875MG/125MG TABLETS (FP) PO SCH ×2 (08:43→19:06)
[2021-10-26] MEDS: MULTIVITAMINS (DAILY MVI) TABLET (FP) PO SCH (12:02)
[2021-10-26] MEDS: ZINC SULFATE 220 MG CAPSULE (FP) PO SCH (12:02)
[2021-10-26] MEDS: amLODIPine BESYLATE 5 MG TABLET (FP) PO SCH (12:02)
[2021-10-26] MEDS: ASCORBIC ACID 500 MG TABLET (FP) PO SCH (12:02)
[2021-10-26] MEDS: HYDROCHLOROTHIAZIDE 25 MG TABLET (FP) PO SCH (12:02)
[2021-10-26] MEDS: ATENOLOL 50 MG TABLET (FP) PO SCH (12:02)
[2021-10-26] MEDS: LOSARTAN POTASSIUM 50 MG TABLET PO SCH (12:03)
[2021-10-26] MEDS: ENOXAPARIN NA (PORCINE) 40 MG/0.4 ML DISP.SYRIN SQ SCH (12:04)
[2021-10-26] MEDS: LIDOCAINE 5% TOPICAL PATCH TP SCH (12:04)
[2021-10-26] MEDS: BUDESONIDE/FORMETEROL FUMARATE 160/4.5 mcg INHALER IH SCH (12:05)
[2021-10-26] MEDS: METHYL SALICYLATE/MENTHOL OINT 30 GM TUBE TP SCH (12:05)
[2021-10-26] MEDS: MINERAL OIL/PET HY-PHL TOPICAL OINTMENT 454 GM JAR TP SCH (12:05)
[2021-10-26 21:31] VITALS: BP 122/48; PULSE 84; TEMP 99
== END 2021-10-26 21:23 | DRG 603 ==
LOC: JER 14:26 → JERBED 16:30 → J8W 21:25
PROVIDERS: ADMIT Hospitalist; ATTEND Internal Medicine
DX: L03.317 Cellulitis of buttock (principal); I50.32 Chronic diastolic (congestive) heart failure; E87.1 Hypo-osmolality and hyponatremia; N39.0 Urinary tract infection, site not specified; K51.90 Ulcerative colitis, unspecified, without complications; I10 Essential (primary) hypertension; J44.9 Chronic obstructive pulmonary disease, unspecified; E78.5 Hyperlipidemia, unspecified; I11.0 Hypertensive heart disease with heart failure; D64.9 Anemia, unspecified; M25.561 Pain in right knee; E03.9 Hypothyroidism, unspecified; L89.322 Pressure ulcer of left buttock, stage 2; L89.312 Pressure ulcer of right buttock, stage 2; G47.00 Insomnia, unspecified; L30.8 Other specified dermatitis; L89.152 Pressure ulcer of sacral region, stage 2
CPT/HCPCS: 36415; 73560-TC-RT-FY; 80048; 80053; 81003; 82272; 82728; 83540; 83550; 83605; 83735; 84100; 85025; 85027; 85045; 87040; 87086; 87186; 97116-GP; 97161-GP; 99285-25; C9803; J1756; U0003; U0005

== ENCOUNTER 2021-12-06 10:30 | Inpatient (IN) | payer OTHER, MEDICARE ==
[2021-12-06 12:28] LABS: BASO % 1.5 % (0-2.0); EOS % 11.9 % (0-4.5); HEMATOCRIT 27.5 % (32.4-45.2); HEMOGLOBIN 9.1 GM/dL (10.7-15.3); LYMPH % 17.4 % (8-40); MCH 30.6 pg (25.7-33.7); MCHC 33.2 g/dl (32.0-36.0); MEAN CELL VOLUME 92.1 fl (80-96); NEUT % 59.2 % (42.8-82.8); PLATELET COUNT 361 10^3/uL (134-434); RBC 2.99 M/mm3 (3.60-5.2); RDW 18.8 % (11.6-15.6)
[2021-12-06] MEDS ORDERED: levETIRAcetam 500 MG TABLET (FP) PO ONE (12:33)
[2021-12-06 12:50] LABS: CALCIUM 8.3 mg/dL (8.5-10.1)
[2021-12-06 12:51] LABS: ALBUMIN 2.3 g/dl (3.4-5.0); BLOOD UREA NITROGEN 8.2 mg/dL (7-18); MAGNESIUM 1.4 mg/dL (1.8-2.4)
[2021-12-06 12:53] LABS: PHOSPHOROUS 2.5 mg/dL (2.5-4.9)
[2021-12-06 12:54] LABS: CREATININE 0.5 mg/dL (0.55-1.3)
[2021-12-06 12:55] LABS: TOT PROT 5.8 g/dl (6.4-8.2)
[2021-12-06 12:55] LABS: URINE APPEARANCE CLEAR; URINE BILIRUBIN NEGATIVE (NEGATIVE); URINE COLOR YELLOW; URINE GLUCOSE (UA) NEGATIVE (NEGATIVE); URINE KETONE NEGATIVE (NEGATIVE); URINE LEUK ESTERASE NEGATIVE (NEGATIVE); URINE NITRITE NEGATIVE (NEGATIVE); URINE PROTEIN NEGATIVE (NEGATIVE)
[2021-12-06 12:56] LABS: BILIRUBIN,TOTAL 0.3 mg/dL (0.2-1)
[2021-12-06] MEDS ORDERED: MAGNESIUM SULF 50% (8.12 MEQ/2 ML-1 GM VIAL) IVPB ONE ×2 (13:52→18:26)
[2021-12-06] MEDS ORDERED: MAGNESIUM 1GM/D5W - 1 GM/100 ML IVPB IVPB ONE (14:00)
[2021-12-06] MEDS ORDERED: FUROSEMIDE 40 MG TABLET (FP) PO PRN (17:13)
[2021-12-06] MEDS: ROSUVASTATIN CA 10 MG TABLET PO SCH (21:44)
[2021-12-06] MEDS: HEPARIN NA (PORCINE) 5,000 UNITS/ML 1ML VIAL SQ SCH (21:49)
[2021-12-06] MEDS: BUDESONIDE/FORMETEROL FUMARATE 160/4.5 mcg INHALER IH SCH (22:00)
[2021-12-06] MEDS: NYSTATIN POWDER 100,000 UNITS/GM - 15 GM TOPICAL POWDER TP SCH (22:01)
[2021-12-06] MEDS: sulfaSALAzine 500 MG TABLET PO SCH (22:01)
[2021-12-06] MEDS: traMADol HCL 50 MG TABLET PO PRN (22:29)
[2021-12-07] MEDS: NYSTATIN POWDER 100,000 UNITS/GM - 15 GM TOPICAL POWDER TP SCH ×3 (05:37→22:15)
[2021-12-07] MEDS: sulfaSALAzine 500 MG TABLET PO SCH ×3 (05:37→22:15)
[2021-12-07] MEDS ORDERED: LEVOTHYROXINE NA 100 MCG TABLET (FP) PO SCH (07:00)
[2021-12-07 09:19] LABS: HEMATOCRIT 27.1 % (32.4-45.2); HEMOGLOBIN 9.1 GM/dL (10.7-15.3); MCH 30.8 pg (25.7-33.7); MCHC 33.6 g/dl (32.0-36.0); MEAN CELL VOLUME 91.6 fl (80-96); MEAN PLT VOLUME 6.3 fl (7.5-11.1); PLATELET COUNT 343 10^3/uL (134-434); RBC 2.96 M/mm3 (3.60-5.2); RDW 18.6 % (11.6-15.6); WHITE BLOOD COUNT 6.1 K/mm3 (4.0-10.0)
[2021-12-07 09:42] LABS: BLOOD UREA NITROGEN 6.4 mg/dL (7-18); MAGNESIUM 1.3 mg/dL (1.8-2.4)
[2021-12-07 09:45] LABS: CALCIUM 8.5 mg/dL (8.5-10.1); CREATININE 0.5 mg/dL (0.55-1.3)
[2021-12-07] MEDS ORDERED: DICLOFENAC SODIUM 20 GM TP SCH (10:00)
[2021-12-07] MEDS: FERROUS SO4 325 MG TABLET (FP) PO SCH (10:56)
[2021-12-07] MEDS: LOSARTAN POTASSIUM 50 MG TABLET PO SCH (10:56)
[2021-12-07] MEDS: amLODIPine BESYLATE 5 MG TABLET (FP) PO SCH (10:57)
[2021-12-07] MEDS: HEPARIN NA (PORCINE) 5,000 UNITS/ML 1ML VIAL SQ SCH ×2 (10:57→22:13)
[2021-12-07] MEDS: BUDESONIDE/FORMETEROL FUMARATE 160/4.5 mcg INHALER IH SCH ×2 (10:57→22:15)
[2021-12-07] MEDS ORDERED: ZINC OXIDE 20% TOPICAL OINTMENT 30 GM TUBE TP PRN (13:23)
[2021-12-07] MEDS ORDERED: POTASSIUM CHLORIDE ORAL LIQUID 20 MEQ/15 ML PO ONE ×2 (13:24→18:00)
[2021-12-07] MEDS ORDERED: GLYCERIN 1 RECTAL SUPPOSITORY, ADULT RC ONE (13:45)
[2021-12-07] MEDS: traMADol HCL 50 MG TABLET PO PRN ×2 (17:46→22:14)
[2021-12-07] MEDS: ATENOLOL 50 MG TABLET (FP) PO SCH (19:06)
[2021-12-07] MEDS: ROSUVASTATIN CA 10 MG TABLET PO SCH (22:15)
[2021-12-08] MEDS: NYSTATIN POWDER 100,000 UNITS/GM - 15 GM TOPICAL POWDER TP SCH ×3 (06:37→21:28)
[2021-12-08] MEDS: sulfaSALAzine 500 MG TABLET PO SCH ×3 (06:37→21:28)
[2021-12-08] MEDS: LEVOTHYROXINE NA 50 MCG TABLET (FP) PO SCH (06:40)
[2021-12-08] MEDS: traMADol HCL 50 MG TABLET PO PRN ×3 (06:52→18:09)
[2021-12-08] MEDS ORDERED: LEVOTHYROXINE NA 50 MCG TABLET (FP) PO SCH (07:00)
[2021-12-08 07:03] LABS: HEMOGLOBIN 8.3 GM/dL (10.7-15.3); MCH 30.7 pg (25.7-33.7); MCHC 33.3 g/dl (32.0-36.0); MEAN CELL VOLUME 92.3 fl (80-96); MEAN PLT VOLUME 6.3 fl (7.5-11.1); PLATELET COUNT 321 10^3/uL (134-434); RBC 2.71 M/mm3 (3.60-5.2); RDW 18.8 % (11.6-15.6)
[2021-12-08 07:12] LABS: CALCIUM 8.2 mg/dL (8.5-10.1)
[2021-12-08 07:13] LABS: BLOOD UREA NITROGEN 5.1 mg/dL (7-18)
[2021-12-08 07:15] LABS: CREATININE 0.4 mg/dL (0.55-1.3)
[2021-12-08] MEDS ORDERED: MAGNESIUM SULFATE IN WATER 2 GM/50 ML IVPB IVPB ONE (08:15)
[2021-12-08] MEDS: LOSARTAN POTASSIUM 50 MG TABLET PO SCH (09:47)
[2021-12-08] MEDS: ATENOLOL 50 MG TABLET (FP) PO SCH (09:47)
[2021-12-08] MEDS: amLODIPine BESYLATE 5 MG TABLET (FP) PO SCH (09:47)
[2021-12-08] MEDS: HEPARIN NA (PORCINE) 5,000 UNITS/ML 1ML VIAL SQ SCH ×2 (09:47→21:28)
[2021-12-08] MEDS: FERROUS SO4 325 MG TABLET (FP) PO SCH (09:47)
[2021-12-08] MEDS: BUDESONIDE/FORMETEROL FUMARATE 160/4.5 mcg INHALER IH SCH ×2 (09:49→21:30)
[2021-12-08] MEDS ORDERED: LEVOTHYROXINE SODIUM 50 MCG PO SCH (10:00)
[2021-12-08] MEDS: LIDOCAINE 5% TOPICAL PATCH TP SCH (11:44)
[2021-12-08] MEDS ORDERED: COD LIVER OIL/ZINC OXIDE PASTE 56 GM TUBE TP PRN (14:19)
[2021-12-08 20:58] VITALS: BMI 22.3
[2021-12-08] MEDS: ROSUVASTATIN CA 10 MG TABLET PO SCH (21:28)
[2021-12-08] MEDS: LIDOCAINE PATCH REMOVAL MC SCH (21:28)
[2021-12-09] MEDS: sulfaSALAzine 500 MG TABLET PO SCH ×3 (06:06→21:04)
[2021-12-09] MEDS: NYSTATIN POWDER 100,000 UNITS/GM - 15 GM TOPICAL POWDER TP SCH ×3 (06:07→21:07)
[2021-12-09] MEDS: LEVOTHYROXINE NA 50 MCG TABLET (FP) PO SCH (06:07)
[2021-12-09] MEDS: traMADol HCL 50 MG TABLET PO PRN (06:09)
[2021-12-09 07:50] LABS: HEMATOCRIT 26.4 % (32.4-45.2); HEMOGLOBIN 8.7 GM/dL (10.7-15.3); MCH 30.7 pg (25.7-33.7); MCHC 33.1 g/dl (32.0-36.0); MEAN CELL VOLUME 92.8 fl (80-96); MEAN PLT VOLUME 5.9 fl (7.5-11.1); PLATELET COUNT 318 10^3/uL (134-434); RBC 2.84 M/mm3 (3.60-5.2); RDW 18.4 % (11.6-15.6); WHITE BLOOD COUNT 8.1 K/mm3 (4.0-10.0)
[2021-12-09] MEDS: AMINO ACIDS/PROTEIN HYDROLYS 30 ML LIQUID.PKT PO SCH ×2 (07:56→17:16)
[2021-12-09 08:38] LABS: BLOOD UREA NITROGEN 5.9 mg/dL (7-18); CALCIUM 8.2 mg/dL (8.5-10.1); CREATININE 0.4 mg/dL (0.55-1.3)
[2021-12-09] MEDS ORDERED: oxyCODONE HCL 5 MG TABLET PO ONE (09:42)
[2021-12-09] MEDS ORDERED: DOCUSATE SODIUM 100 MG CAPSULE (FP) PO ONE (09:42)
[2021-12-09] MEDS: LOSARTAN POTASSIUM 50 MG TABLET PO SCH (10:21)
[2021-12-09] MEDS: HEPARIN NA (PORCINE) 5,000 UNITS/ML 1ML VIAL SQ SCH ×2 (10:21→21:05)
[2021-12-09] MEDS: DOCUSATE SODIUM 100 MG CAPSULE (FP) PO SCH ×2 (10:22→11:22)
[2021-12-09] MEDS: MULTIVITAMINS (DAILY MVI) TABLET (FP) PO SCH (10:22)
[2021-12-09] MEDS: ASCORBIC ACID 250 MG TABLET (FP) PO SCH (10:22)
[2021-12-09] MEDS: amLODIPine BESYLATE 5 MG TABLET (FP) PO SCH (10:22)
[2021-12-09] MEDS: FERROUS SO4 325 MG TABLET (FP) PO SCH (10:22)
[2021-12-09] MEDS: ATENOLOL 50 MG TABLET (FP) PO SCH (10:22)
[2021-12-09] MEDS: LIDOCAINE 5% TOPICAL PATCH TP SCH (10:23)
[2021-12-09] MEDS: BUDESONIDE/FORMETEROL FUMARATE 160/4.5 mcg INHALER IH SCH ×2 (10:24→21:06)
[2021-12-09] MEDS: FLUCONAZOLE 100 MG TABLET (UD) PO SCH (17:16)
[2021-12-09] MEDS: oxyCODONE HCL 5 MG TABLET PO PRN (21:04)
[2021-12-09] MEDS: ROSUVASTATIN CA 10 MG TABLET PO SCH (21:05)
[2021-12-09] MEDS: LIDOCAINE PATCH REMOVAL MC SCH (21:05)
[2021-12-09] MEDS ORDERED: MAG HYDROX/AL HYDROX/SIMETH -MYLANTA- ORAL SUSPENSION PO ONE (21:32)
[2021-12-10] MEDS: NYSTATIN POWDER 100,000 UNITS/GM - 15 GM TOPICAL POWDER TP SCH ×3 (05:52→21:21)
[2021-12-10] MEDS: sulfaSALAzine 500 MG TABLET PO SCH ×3 (05:52→21:21)
[2021-12-10] MEDS: LEVOTHYROXINE NA 50 MCG TABLET (FP) PO SCH (06:11)
[2021-12-10] MEDS ORDERED: LEVOTHYROXINE NA 50 MCG TABLET (FP) PO SCH (07:00)
[2021-12-10] MEDS: oxyCODONE HCL 5 MG TABLET PO PRN (10:53)
[2021-12-10] MEDS: LOSARTAN POTASSIUM 50 MG TABLET PO SCH (10:54)
[2021-12-10] MEDS: MULTIVITAMINS (DAILY MVI) TABLET (FP) PO SCH (10:54)
[2021-12-10] MEDS: amLODIPine BESYLATE 5 MG TABLET (FP) PO SCH (10:54)
[2021-12-10] MEDS: DOCUSATE SODIUM 100 MG CAPSULE (FP) PO SCH (10:54)
[2021-12-10] MEDS: BUDESONIDE/FORMETEROL FUMARATE 160/4.5 mcg INHALER IH SCH ×2 (10:54→21:22)
[2021-12-10] MEDS: ATENOLOL 50 MG TABLET (FP) PO SCH (10:54)
[2021-12-10] MEDS: HEPARIN NA (PORCINE) 5,000 UNITS/ML 1ML VIAL SQ SCH ×2 (10:54→21:20)
[2021-12-10] MEDS: FERROUS SO4 325 MG TABLET (FP) PO SCH (10:54)
[2021-12-10] MEDS: ASCORBIC ACID 250 MG TABLET (FP) PO SCH (10:55)
[2021-12-10] MEDS: LIDOCAINE 5% TOPICAL PATCH TP SCH (10:55)
[2021-12-10] MEDS: FLUCONAZOLE 100 MG TABLET (UD) PO SCH (10:55)
[2021-12-10] MEDS: AMINO ACIDS/PROTEIN HYDROLYS 30 ML LIQUID.PKT PO SCH ×2 (10:55→16:49)
[2021-12-10] MEDS: ROSUVASTATIN CA 10 MG TABLET PO SCH (21:20)
[2021-12-10] MEDS: LIDOCAINE PATCH REMOVAL MC SCH (21:21)
[2021-12-11] MEDS: LEVOTHYROXINE NA 50 MCG TABLET (FP) PO SCH (06:05)
[2021-12-11] MEDS: NYSTATIN POWDER 100,000 UNITS/GM - 15 GM TOPICAL POWDER TP SCH (06:06)
[2021-12-11] MEDS: sulfaSALAzine 500 MG TABLET PO SCH (06:09)
[2021-12-11 08:53] VITALS: BP 112/54; PULSE 68; TEMP 97.4
[2021-12-11] MEDS: AMINO ACIDS/PROTEIN HYDROLYS 30 ML LIQUID.PKT PO SCH (09:07)
[2021-12-11] MEDS: HEPARIN NA (PORCINE) 5,000 UNITS/ML 1ML VIAL SQ SCH (09:07)
[2021-12-11] MEDS: DOCUSATE SODIUM 100 MG CAPSULE (FP) PO SCH (09:07)
[2021-12-11] MEDS: LIDOCAINE 5% TOPICAL PATCH TP SCH (09:07)
[2021-12-11] MEDS: amLODIPine BESYLATE 5 MG TABLET (FP) PO SCH (09:08)
[2021-12-11] MEDS: ATENOLOL 50 MG TABLET (FP) PO SCH (09:08)
[2021-12-11] MEDS: MULTIVITAMINS (DAILY MVI) TABLET (FP) PO SCH (09:08)
[2021-12-11] MEDS: FERROUS SO4 325 MG TABLET (FP) PO SCH (09:08)
[2021-12-11] MEDS: oxyCODONE HCL 5 MG TABLET PO PRN (09:08)
[2021-12-11] MEDS: LOSARTAN POTASSIUM 50 MG TABLET PO SCH (09:08)
[2021-12-11] MEDS: FLUCONAZOLE 100 MG TABLET (UD) PO SCH (09:09)
[2021-12-11] MEDS: ASCORBIC ACID 250 MG TABLET (FP) PO SCH (09:09)
[2021-12-11] MEDS: BUDESONIDE/FORMETEROL FUMARATE 160/4.5 mcg INHALER IH SCH (09:09)
== END 2021-12-11 11:39 | DRG 556 ==
LOC: JER 10:30 → JERBED 15:02 → J6S 17:09
PROVIDERS: ADMIT Internal Medicine; ATTEND Internal Medicine
DX: R26.2 Difficulty in walking, not elsewhere classified (principal); K51.90 Ulcerative colitis, unspecified, without complications; M17.0 Bilateral primary osteoarthritis of knee; L30.9 Dermatitis, unspecified; J44.9 Chronic obstructive pulmonary disease, unspecified; D64.9 Anemia, unspecified; L89.302 Pressure ulcer of unspecified buttock, stage 2; E83.42 Hypomagnesemia; B36.9 Superficial mycosis, unspecified; E78.5 Hyperlipidemia, unspecified
CPT/HCPCS: 36415; 71045-TC-FY; 80048; 80053; 81003; 82550; 83735; 83880; 84100; 84443; 84484; 85025; 85027; 87086; 93005; 93010; 93971-TC; 97116-GP; 97161-GP; 99285-25; C9803-CS; J1644; U0003; U0005

== ENCOUNTER 2022-01-22 04:21 | Inpatient (IN) | payer OTHER, MEDICARE ==
[2022-01-22 05:35] LABS: BASO % 1.3 % (0-2.0); EOS % 17.3 % (0-4.5); HEMATOCRIT 27.6 % (32.4-45.2); HEMOGLOBIN 9.3 GM/dL (10.7-15.3); LYMPH % 15.9 % (8-40); MCH 32.5 pg (25.7-33.7); MCHC 33.7 g/dl (32.0-36.0); MEAN CELL VOLUME 96.5 fl (80-96); MONO % 8.9 % (3.8-10.2); NEUT % 56.6 % (42.8-82.8); PLATELET COUNT 423 10^3/uL (134-434); RBC 2.86 M/mm3 (3.60-5.2); RDW 17.7 % (11.6-15.6); WHITE BLOOD COUNT 7.9 K/mm3 (4.0-10.0)
[2022-01-22 05:56] LABS: ALBUMIN 2.2 g/dl (3.4-5.0); CALCIUM 9.2 mg/dL (8.5-10.1)
[2022-01-22 05:57] LABS: BLOOD UREA NITROGEN 18.6 mg/dL (7-18)
[2022-01-22 06:00] LABS: CREATININE 0.6 mg/dL (0.55-1.3)
[2022-01-22 06:01] LABS: BILIRUBIN,TOTAL 0.4 mg/dL (0.2-1); TOT PROT 6.3 g/dl (6.4-8.2)
[2022-01-22] MEDS ORDERED: ACETAMINOPHEN 1000 MG/100 ML BAG IVPB ONE (06:15)
[2022-01-22] MEDS ORDERED: ACETAMINOPHEN INJECTION 100 ML IVPB ONE (06:35)
[2022-01-22 06:42] VITALS: BMI 20.9
[2022-01-22] MEDS ORDERED: SODIUM CHLORIDE 1,000 ML IV SCH ×2 (07:45→11:15)
[2022-01-22] MEDS ORDERED: FUROSEMIDE 40 MG TABLET (FP) PO PRN (07:53)
[2022-01-22] MEDS ORDERED: LEVOTHYROXINE NA 50 MCG TABLET (FP) PO SCH ×2 (08:30)
[2022-01-22] MEDS ORDERED: FUROSEMIDE 20 MG TABLET (FP) PO SCH (10:00)
[2022-01-22] MEDS ORDERED: FUROSEMIDE 40 MG TABLET (FP) PO SCH (10:00)
[2022-01-22] MEDS ORDERED: amLODIPine BESYLATE 5 MG TABLET (FP) PO SCH (10:00)
[2022-01-22] MEDS ORDERED: amLODIPine BESYLATE 5 MG TABLET (FP) ONE (12:04)
[2022-01-22] MEDS ORDERED: LOSARTAN POTASSIUM 50 MG TABLET ONE (12:04)
[2022-01-22] MEDS ORDERED: HYDROCHLOROTHIAZIDE 25 MG TABLET (FP) ONE (12:04)
[2022-01-22] MEDS ORDERED: LEVOTHYROXINE NA 25 MCG TABLET (FP) ONE (12:04)
[2022-01-22] MEDS ORDERED: LEVOTHYROXINE NA 75 MCG TABLET (FP) ONE (12:05)
[2022-01-22] MEDS ORDERED: ENOXAPARIN NA (PORCINE) 30 MG/0.3 ML DISP.SYRIN SQ ONE (12:05)
[2022-01-22] MEDS ORDERED: DOCUSATE SODIUM 100 MG CAPSULE (FP) PO ONE (12:05)
[2022-01-22 12:19] LABS: CALCIUM 9.1 mg/dL (8.5-10.1)
[2022-01-22 12:20] LABS: BLOOD UREA NITROGEN 17.2 mg/dL (7-18)
[2022-01-22] MEDS: LOSARTAN POTASSIUM 50 MG TABLET PO SCH (12:22)
[2022-01-22] MEDS: HYDROCHLOROTHIAZIDE 25 MG TABLET (FP) PO SCH (12:22)
[2022-01-22] MEDS: LEVOTHYROXINE NA 100 MCG TABLET (FP) PO SCH (12:22)
[2022-01-22] MEDS: amLODIPine BESYLATE 5 MG TABLET (FP) PO SCH (12:22)
[2022-01-22] MEDS: DOCUSATE SODIUM 100 MG CAPSULE (FP) PO SCH (12:22)
[2022-01-22] MEDS: ENOXAPARIN NA (PORCINE) 30 MG/0.3 ML DISP.SYRIN SQ SCH (12:22)
[2022-01-22 12:23] LABS: CREATININE 0.5 mg/dL (0.55-1.3)
[2022-01-22 13:27] LABS: EPI CELLS 7 /uL (0-25.1); HYALINE CASTS 1 /uL (0-3.1); PH,URINE 8.5 (5.0-8.0); URINE APPEARANCE CLOUDY; URINE BACTERIA 644 /uL (0-1359); URINE BILIRUBIN NEGATIVE (NEGATIVE); URINE COLOR YELLOW; URINE GLUCOSE (UA) NEGATIVE (NEGATIVE); URINE KETONE NEGATIVE (NEGATIVE); URINE LEUK ESTERASE TRACE (NEGATIVE); URINE NITRITE NEGATIVE (NEGATIVE); URINE PROTEIN NEGATIVE (NEGATIVE); URINE RBC 4 /uL (0-23.9); URINE UROBILINOGEN 0.2 mg/dL (0.2-1.0); URINE WBC 33 /uL (0-25.8)
[2022-01-22] MEDS: ACETAMINOPHEN 1000 MG/100 ML BAG IVPB PRN ×2 (13:47→23:53)
[2022-01-22] MEDS ORDERED: sulfaSALAzine 500 MG TABLET PO SCH (14:00)
[2022-01-22] MEDS ORDERED: KETOROLAC TROMETHAMINE 15 MG/ML VIAL IVPUSH ONE (14:55)
[2022-01-22] MEDS ORDERED: ACETAMINOPHEN 325 MG TABLET (FP) PO PRN (14:55)
[2022-01-22] MEDS: NYSTATIN 100,000 UNIT/GM TOPICAL CREAM 15 GM TUBE TP SCH ×2 (16:15→22:45)
[2022-01-22] MEDS: ZINC OXIDE 20% TOPICAL OINTMENT 30 GM TUBE TP SCH ×2 (16:15→22:45)
[2022-01-22] MEDS: LIDOCAINE 5% TOPICAL PATCH TP SCH ×2 (16:25)
[2022-01-22] MEDS: ROSUVASTATIN CA 10 MG TABLET PO SCH (22:44)
[2022-01-22] MEDS: LIDOCAINE PATCH REMOVAL MC SCH ×2 (22:45)
[2022-01-23] MEDS: LEVOTHYROXINE NA 100 MCG TABLET (FP) PO SCH (06:30)
[2022-01-23 10:17] LABS: BASO % 1.5 % (0-2.0); EOS % 12.4 % (0-4.5); HEMATOCRIT 28.3 % (32.4-45.2); HEMOGLOBIN 9.6 GM/dL (10.7-15.3); MCH 32.6 pg (25.7-33.7); MCHC 33.8 g/dl (32.0-36.0); MEAN CELL VOLUME 96.4 fl (80-96); MEAN PLT VOLUME 6.4 fl (7.5-11.1); MONO % 7.1 % (3.8-10.2); PLATELET COUNT 454 10^3/uL (134-434); RBC 2.94 M/mm3 (3.60-5.2); RDW 16.9 % (11.6-15.6); WHITE BLOOD COUNT 7.7 K/mm3 (4.0-10.0)
[2022-01-23 10:33] LABS: CALCIUM 8.8 mg/dL (8.5-10.1); CREATININE 0.5 mg/dL (0.55-1.3); IRON SERUM 29 ug/dL (50-175); MAGNESIUM 1.8 mg/dL (1.8-2.4); PHOSPHOROUS 3.1 mg/dL (2.5-4.9); TOTAL IRON BINDING CAPACITY 221 ug/dL (250-450)
[2022-01-23] MEDS: DOCUSATE SODIUM 100 MG CAPSULE (FP) PO SCH (10:41)
[2022-01-23] MEDS: HYDROCHLOROTHIAZIDE 25 MG TABLET (FP) PO SCH (10:41)
[2022-01-23] MEDS: amLODIPine BESYLATE 5 MG TABLET (FP) PO SCH (10:41)
[2022-01-23] MEDS: ENOXAPARIN NA (PORCINE) 30 MG/0.3 ML DISP.SYRIN SQ SCH (10:41)
[2022-01-23] MEDS: LOSARTAN POTASSIUM 50 MG TABLET PO SCH (10:41)
[2022-01-23] MEDS: LIDOCAINE 5% TOPICAL PATCH TP SCH ×2 (10:42)
[2022-01-23] MEDS: ZINC OXIDE 20% TOPICAL OINTMENT 30 GM TUBE TP SCH ×2 (10:42→21:30)
[2022-01-23] MEDS: NYSTATIN 100,000 UNIT/GM TOPICAL CREAM 15 GM TUBE TP SCH ×2 (10:42→21:30)
[2022-01-23] MEDS ORDERED: POTASSIUM CHLORIDE TABS 20 MEQ TABLET.ER (FP) PO ONE (17:58)
[2022-01-23] MEDS ORDERED: ONDANSETRON 4 MG/2 ML VIAL IVPUSH PRN (17:58)
[2022-01-23] MEDS: LIDOCAINE PATCH REMOVAL MC SCH ×2 (21:30)
[2022-01-23] MEDS: ROSUVASTATIN CA 10 MG TABLET PO SCH (21:30)
[2022-01-23] MEDS ORDERED: oxyCODONE HCL 5 MG TABLET PO ONE (21:31)
[2022-01-24] MEDS: LEVOTHYROXINE NA 100 MCG TABLET (FP) PO SCH (06:12)
[2022-01-24] MEDS: ENOXAPARIN NA (PORCINE) 30 MG/0.3 ML DISP.SYRIN SQ SCH (09:53)
[2022-01-24] MEDS: LIDOCAINE 5% TOPICAL PATCH TP SCH ×2 (09:53→09:54)
[2022-01-24] MEDS: amLODIPine BESYLATE 5 MG TABLET (FP) PO SCH (09:54)
[2022-01-24] MEDS: NYSTATIN 100,000 UNIT/GM TOPICAL CREAM 15 GM TUBE TP SCH ×2 (09:54→21:53)
[2022-01-24] MEDS: ZINC OXIDE 20% TOPICAL OINTMENT 30 GM TUBE TP SCH ×2 (09:54→21:53)
[2022-01-24] MEDS: LOSARTAN POTASSIUM 50 MG TABLET PO SCH (09:54)
[2022-01-24] MEDS: DOCUSATE SODIUM 100 MG CAPSULE (FP) PO SCH (09:54)
[2022-01-24] MEDS: HYDROCHLOROTHIAZIDE 25 MG TABLET (FP) PO SCH (09:54)
[2022-01-24 12:22] LABS: HEMATOCRIT 28.2 % (32.4-45.2); HEMOGLOBIN 9.3 GM/dL (10.7-15.3); MCH 31.7 pg (25.7-33.7); MEAN CELL VOLUME 96.1 fl (80-96); MEAN PLT VOLUME 5.9 fl (7.5-11.1); PLATELET COUNT 450 10^3/uL (134-434); RBC 2.94 M/mm3 (3.60-5.2); RDW 17.2 % (11.6-15.6)
[2022-01-24 12:43] LABS: CALCIUM 8.3 mg/dL (8.5-10.1)
[2022-01-24 12:44] LABS: BLOOD UREA NITROGEN 8.4 mg/dL (7-18)
[2022-01-24 12:47] LABS: CREATININE 0.5 mg/dL (0.55-1.3)
[2022-01-24] MEDS ORDERED: COD LIVER OIL/ZINC OXIDE PASTE 56 GM TUBE TP PRN (17:04)
[2022-01-24] MEDS: ACETAMINOPHEN 325 MG TABLET (FP) PO PRN ×2 (17:41→23:24)
[2022-01-24] MEDS: ROSUVASTATIN CA 10 MG TABLET PO SCH (21:52)
[2022-01-24] MEDS: traMADol HCL 50 MG TABLET PO PRN (21:52)
[2022-01-24] MEDS: LIDOCAINE PATCH REMOVAL MC SCH ×2 (21:53)
[2022-01-24] MEDS: AMPICILLIN NA/SULBACTAM NA 1.5 GM in SODIUM CHLORIDE 100 ML IVPB SCH (21:54)
[2022-01-25] MEDS: AMPICILLIN NA/SULBACTAM NA 1.5 GM in SODIUM CHLORIDE 100 ML IVPB SCH ×4 (02:02→20:30)
[2022-01-25] MEDS: traMADol HCL 50 MG TABLET PO PRN (06:20)
[2022-01-25] MEDS: LEVOTHYROXINE NA 100 MCG TABLET (FP) PO SCH (06:20)
[2022-01-25] MEDS ORDERED: AMPICILLIN NA/SULBACTAM NA 1.5 GM VIAL ONE ×3 (09:45→20:28)
[2022-01-25] MEDS ORDERED: SODIUM CHLORIDE 100 ML IVPB ONE ×3 (09:46→20:28)
[2022-01-25] MEDS: HYDROCHLOROTHIAZIDE 25 MG TABLET (FP) PO SCH (09:53)
[2022-01-25] MEDS: ENOXAPARIN NA (PORCINE) 30 MG/0.3 ML DISP.SYRIN SQ SCH (09:53)
[2022-01-25] MEDS: amLODIPine BESYLATE 5 MG TABLET (FP) PO SCH (09:54)
[2022-01-25] MEDS: LIDOCAINE 5% TOPICAL PATCH TP SCH ×2 (09:54→11:26)
[2022-01-25] MEDS: NYSTATIN 100,000 UNIT/GM TOPICAL CREAM 15 GM TUBE TP SCH ×2 (09:58→21:11)
[2022-01-25] MEDS: LOSARTAN POTASSIUM 50 MG TABLET PO SCH (10:26)
[2022-01-25] MEDS: ZINC OXIDE 20% TOPICAL OINTMENT 30 GM TUBE TP SCH ×2 (11:27→21:12)
[2022-01-25 11:51] LABS: HEMOGLOBIN 8.9 GM/dL (10.7-15.3); MCH 31.4 pg (25.7-33.7); MCHC 32.8 g/dl (32.0-36.0); MEAN CELL VOLUME 95.7 fl (80-96); PLATELET COUNT 422 10^3/uL (134-434); RBC 2.82 M/mm3 (3.60-5.2); RDW 17.2 % (11.6-15.6); WHITE BLOOD COUNT 7.2 K/mm3 (4.0-10.0)
[2022-01-25 12:04] LABS: MEAN PLT VOLUME 5.6 fl (7.5-11.1)
[2022-01-25 12:13] LABS: CALCIUM 8.3 mg/dL (8.5-10.1)
[2022-01-25 12:15] LABS: BLOOD UREA NITROGEN 7.3 mg/dL (7-18)
[2022-01-25 12:18] LABS: CREATININE 0.4 mg/dL (0.55-1.3)
[2022-01-25] MEDS: ACETAMINOPHEN 325 MG TABLET (FP) PO PRN (12:41)
[2022-01-25] MEDS ORDERED: POTASSIUM CHLORIDE TABS 20 MEQ TABLET.ER (FP) PO ONE (14:31)
[2022-01-25] MEDS: FERROUS SO4 325 MG TABLET (FP) PO SCH (16:05)
[2022-01-25] MEDS: FLUCONAZOLE 100 MG TABLET (UD) PO SCH (19:33)
[2022-01-25] MEDS: AMINO ACIDS/PROTEIN HYDROLYS 30 ML LIQUID.PKT PO SCH (19:33)
[2022-01-25] MEDS: ROSUVASTATIN CA 10 MG TABLET PO SCH (21:32)
[2022-01-25] MEDS: LIDOCAINE PATCH REMOVAL MC SCH ×2 (21:32→23:12)
[2022-01-26] MEDS: AMPICILLIN NA/SULBACTAM NA 1.5 GM in SODIUM CHLORIDE 100 ML IVPB SCH ×4 (02:19→20:32)
[2022-01-26] MEDS: LEVOTHYROXINE NA 100 MCG TABLET (FP) PO SCH (06:11)
[2022-01-26] MEDS ORDERED: AMPICILLIN NA/SULBACTAM NA 1.5 GM VIAL ONE ×3 (09:21→20:08)
[2022-01-26] MEDS ORDERED: SODIUM CHLORIDE 100 ML IVPB ONE ×3 (09:21→20:08)
[2022-01-26] MEDS: MULTIVITAMINS (DAILY MVI) TABLET (FP) PO SCH (09:31)
[2022-01-26] MEDS: ASCORBIC ACID 500 MG TABLET (FP) PO SCH (09:31)
[2022-01-26] MEDS: FLUCONAZOLE 100 MG TABLET (UD) PO SCH (09:31)
[2022-01-26] MEDS: LOSARTAN POTASSIUM 50 MG TABLET PO SCH (09:31)
[2022-01-26] MEDS: HYDROCHLOROTHIAZIDE 25 MG TABLET (FP) PO SCH (09:31)
[2022-01-26] MEDS: ENOXAPARIN NA (PORCINE) 30 MG/0.3 ML DISP.SYRIN SQ SCH (09:32)
[2022-01-26] MEDS: amLODIPine BESYLATE 5 MG TABLET (FP) PO SCH (09:32)
[2022-01-26] MEDS: AMINO ACIDS/PROTEIN HYDROLYS 30 ML LIQUID.PKT PO SCH ×2 (09:32→16:44)
[2022-01-26] MEDS: ZINC OXIDE 20% TOPICAL OINTMENT 30 GM TUBE TP SCH (09:33)
[2022-01-26] MEDS: NYSTATIN 100,000 UNIT/GM TOPICAL CREAM 15 GM TUBE TP SCH (09:33)
[2022-01-26] MEDS: LIDOCAINE 5% TOPICAL PATCH TP SCH ×2 (09:33)
[2022-01-26 09:46] LABS: HEMATOCRIT 28.3 % (32.4-45.2); HEMOGLOBIN 9.5 GM/dL (10.7-15.3); MCH 32.4 pg (25.7-33.7); MCHC 33.7 g/dl (32.0-36.0); MEAN CELL VOLUME 96.1 fl (80-96); MEAN PLT VOLUME 6.2 fl (7.5-11.1); PLATELET COUNT 418 10^3/uL (134-434); RBC 2.94 M/mm3 (3.60-5.2); RDW 16.7 % (11.6-15.6); WHITE BLOOD COUNT 5.6 K/mm3 (4.0-10.0)
[2022-01-26 09:58] LABS: CALCIUM 8.6 mg/dL (8.5-10.1)
[2022-01-26 09:59] LABS: BLOOD UREA NITROGEN 10.3 mg/dL (7-18); MAGNESIUM 1.9 mg/dL (1.8-2.4)
[2022-01-26 10:02] LABS: PHOSPHOROUS 3.8 mg/dL (2.5-4.9)
[2022-01-26 10:03] LABS: CREATININE 0.5 mg/dL (0.55-1.3)
[2022-01-26] MEDS: oxyCODONE HCL 5 MG TABLET PO PRN (21:10)
[2022-01-26] MEDS: ROSUVASTATIN CA 10 MG TABLET PO SCH (21:10)
[2022-01-27] MEDS: LIDOCAINE PATCH REMOVAL MC SCH ×4 (00:09→23:54)
[2022-01-27] MEDS: NYSTATIN 100,000 UNIT/GM TOPICAL CREAM 15 GM TUBE TP SCH ×3 (00:09→23:54)
[2022-01-27] MEDS: ZINC OXIDE 20% TOPICAL OINTMENT 30 GM TUBE TP SCH ×3 (00:09→23:54)
[2022-01-27] MEDS ORDERED: AMPICILLIN NA/SULBACTAM NA 1.5 GM VIAL ONE ×4 (02:14→23:34)
[2022-01-27] MEDS ORDERED: SODIUM CHLORIDE 100 ML IVPB ONE ×4 (02:14→23:34)
[2022-01-27] MEDS: AMPICILLIN NA/SULBACTAM NA 1.5 GM in SODIUM CHLORIDE 100 ML IVPB SCH ×4 (02:18→23:53)
[2022-01-27] MEDS: LEVOTHYROXINE NA 100 MCG TABLET (FP) PO SCH (06:06)
[2022-01-27] MEDS ORDERED: POLYETHYLENE GLYCOL (HEALTHYLAX) 3350 17 GM PACKET PO SCH (10:00)
[2022-01-27] MEDS: LIDOCAINE 5% TOPICAL PATCH TP SCH ×2 (10:31→10:32)
[2022-01-27] MEDS: POLYETHYLENE GLYCOL (HEALTHYLAX) 3350 17 GM PACKET PO SCH (10:31)
[2022-01-27] MEDS: LOSARTAN POTASSIUM 50 MG TABLET PO SCH (10:32)
[2022-01-27] MEDS: AMINO ACIDS/PROTEIN HYDROLYS 30 ML LIQUID.PKT PO SCH ×2 (10:32→17:06)
[2022-01-27] MEDS: ENOXAPARIN NA (PORCINE) 30 MG/0.3 ML DISP.SYRIN SQ SCH (10:32)
[2022-01-27] MEDS: HYDROCHLOROTHIAZIDE 25 MG TABLET (FP) PO SCH (10:32)
[2022-01-27] MEDS: FLUCONAZOLE 100 MG TABLET (UD) PO SCH (10:32)
[2022-01-27] MEDS: ASCORBIC ACID 500 MG TABLET (FP) PO SCH (10:32)
[2022-01-27] MEDS: FERROUS SO4 325 MG TABLET (FP) PO SCH (10:33)
[2022-01-27] MEDS: amLODIPine BESYLATE 5 MG TABLET (FP) PO SCH (10:33)
[2022-01-27] MEDS: MULTIVITAMINS (DAILY MVI) TABLET (FP) PO SCH (10:33)
[2022-01-27 11:16] LABS: HEMATOCRIT 26.6 % (32.4-45.2); HEMOGLOBIN 8.7 GM/dL (10.7-15.3); MCH 31.7 pg (25.7-33.7); MCHC 32.9 g/dl (32.0-36.0); MEAN CELL VOLUME 96.5 fl (80-96); MEAN PLT VOLUME 6.1 fl (7.5-11.1); PLATELET COUNT 440 10^3/uL (134-434); RBC 2.76 M/mm3 (3.60-5.2); RDW 16.8 % (11.6-15.6); WHITE BLOOD COUNT 9.1 K/mm3 (4.0-10.0)
[2022-01-27 11:36] LABS: CALCIUM 8.5 mg/dL (8.5-10.1)
[2022-01-27 11:37] LABS: BLOOD UREA NITROGEN 10.3 mg/dL (7-18)
[2022-01-27 11:40] LABS: CREATININE 0.4 mg/dL (0.55-1.3)
[2022-01-27] MEDS ORDERED: POTASSIUM CHLORIDE TABS 20 MEQ TABLET.ER (FP) PO ONE (12:15)
[2022-01-27] MEDS: oxyCODONE HCL 5 MG TABLET PO PRN ×2 (18:44→23:54)
[2022-01-27] MEDS: ROSUVASTATIN CA 10 MG TABLET PO SCH (23:54)
[2022-01-28] MEDS: AMPICILLIN NA/SULBACTAM NA 1.5 GM in SODIUM CHLORIDE 100 ML IVPB SCH ×2 (02:12→02:21)
[2022-01-28] MEDS: oxyCODONE HCL 5 MG TABLET PO PRN (05:57)
[2022-01-28] MEDS: LEVOTHYROXINE NA 100 MCG TABLET (FP) PO SCH (06:00)
[2022-01-28 09:51] LABS: HEMATOCRIT 26.5 % (32.4-45.2); HEMOGLOBIN 8.9 GM/dL (10.7-15.3); MCH 32.3 pg (25.7-33.7); MCHC 33.4 g/dl (32.0-36.0); MEAN CELL VOLUME 96.5 fl (80-96); MEAN PLT VOLUME 6.4 fl (7.5-11.1); PLATELET COUNT 400 10^3/uL (134-434); RBC 2.75 M/mm3 (3.60-5.2); RDW 16.3 % (11.6-15.6)
[2022-01-28 10:19] LABS: BLOOD UREA NITROGEN 8.8 mg/dL (7-18); CALCIUM 8.7 mg/dL (8.5-10.1)
[2022-01-28 10:23] LABS: CREATININE 0.4 mg/dL (0.55-1.3)
[2022-01-28] MEDS: amLODIPine BESYLATE 5 MG TABLET (FP) PO SCH (10:44)
[2022-01-28] MEDS: ASCORBIC ACID 500 MG TABLET (FP) PO SCH (10:44)
[2022-01-28] MEDS: HYDROCHLOROTHIAZIDE 25 MG TABLET (FP) PO SCH (10:44)
[2022-01-28] MEDS: AMINO ACIDS/PROTEIN HYDROLYS 30 ML LIQUID.PKT PO SCH ×2 (10:44→16:38)
[2022-01-28] MEDS: FLUCONAZOLE 100 MG TABLET (UD) PO SCH (10:44)
[2022-01-28] MEDS: LOSARTAN POTASSIUM 50 MG TABLET PO SCH (10:44)
[2022-01-28] MEDS: POLYETHYLENE GLYCOL (HEALTHYLAX) 3350 17 GM PACKET PO SCH (10:45)
[2022-01-28] MEDS: LIDOCAINE 5% TOPICAL PATCH TP SCH ×2 (10:45)
[2022-01-28] MEDS: ENOXAPARIN NA (PORCINE) 30 MG/0.3 ML DISP.SYRIN SQ SCH (10:46)
[2022-01-28] MEDS: MULTIVITAMINS (DAILY MVI) TABLET (FP) PO SCH (10:46)
[2022-01-28] MEDS: ZINC OXIDE 20% TOPICAL OINTMENT 30 GM TUBE TP SCH ×2 (10:46→22:39)
[2022-01-28] MEDS: NYSTATIN 100,000 UNIT/GM TOPICAL CREAM 15 GM TUBE TP SCH ×2 (10:46→22:38)
[2022-01-28] MEDS: ROSUVASTATIN CA 10 MG TABLET PO SCH (22:38)
[2022-01-28] MEDS: LIDOCAINE PATCH REMOVAL MC SCH ×2 (22:38)
[2022-01-29] MEDS: LEVOTHYROXINE NA 100 MCG TABLET (FP) PO SCH (06:36)
[2022-01-29] MEDS: oxyCODONE HCL 5 MG TABLET PO PRN (06:36)
[2022-01-29 09:25] LABS: HEMATOCRIT 26.1 % (32.4-45.2); MCH 32.7 pg (25.7-33.7); MCHC 34.3 g/dl (32.0-36.0); MEAN CELL VOLUME 95.3 fl (80-96); PLATELET COUNT 408 10^3/uL (134-434); RBC 2.74 M/mm3 (3.60-5.2); RDW 16.1 % (11.6-15.6); WHITE BLOOD COUNT 7.4 K/mm3 (4.0-10.0)
[2022-01-29 10:05] LABS: CALCIUM 8.5 mg/dL (8.5-10.1)
[2022-01-29 10:06] LABS: BLOOD UREA NITROGEN 9.7 mg/dL (7-18); MAGNESIUM 1.7 mg/dL (1.8-2.4)
[2022-01-29 10:09] LABS: CREATININE 0.4 mg/dL (0.55-1.3); PHOSPHOROUS 3.1 mg/dL (2.5-4.9)
[2022-01-29] MEDS ORDERED: MAGNESIUM OXIDE 400 MG TABLET (FP) PO ONE ×2 (11:30→16:00)
[2022-01-29] MEDS: LIDOCAINE 5% TOPICAL PATCH TP SCH ×2 (12:10→12:11)
[2022-01-29] MEDS: AMINO ACIDS/PROTEIN HYDROLYS 30 ML LIQUID.PKT PO SCH ×2 (12:11→19:01)
[2022-01-29] MEDS: POLYETHYLENE GLYCOL (HEALTHYLAX) 3350 17 GM PACKET PO SCH ×2 (12:11→21:24)
[2022-01-29] MEDS: ENOXAPARIN NA (PORCINE) 30 MG/0.3 ML DISP.SYRIN SQ SCH (12:11)
[2022-01-29] MEDS: amLODIPine BESYLATE 5 MG TABLET (FP) PO SCH (12:12)
[2022-01-29] MEDS: LOSARTAN POTASSIUM 50 MG TABLET PO SCH (12:12)
[2022-01-29] MEDS: MULTIVITAMINS (DAILY MVI) TABLET (FP) PO SCH (12:12)
[2022-01-29] MEDS: FLUCONAZOLE 100 MG TABLET (UD) PO SCH (12:12)
[2022-01-29] MEDS: FERROUS SO4 325 MG TABLET (FP) PO SCH (12:13)
[2022-01-29] MEDS: HYDROCHLOROTHIAZIDE 25 MG TABLET (FP) PO SCH (12:13)
[2022-01-29] MEDS: ACETAMINOPHEN 500 MG TABLET (FP) PO PRN (12:13)
[2022-01-29] MEDS: ASCORBIC ACID 500 MG TABLET (FP) PO SCH (12:13)
[2022-01-29] MEDS: NYSTATIN 100,000 UNIT/GM TOPICAL CREAM 15 GM TUBE TP SCH ×2 (12:14→21:26)
[2022-01-29] MEDS: NAPH,MB-DB/K PH,MBDB POWDER PACKET PO SCH ×2 (16:26→21:24)
[2022-01-29] MEDS ORDERED: POTASSIUM CHLORIDE TABS 20 MEQ TABLET.ER (FP) PO ONE (17:11)
[2022-01-29] MEDS: ZINC OXIDE 20% TOPICAL OINTMENT 30 GM TUBE TP SCH ×2 (19:01→21:26)
[2022-01-29] MEDS: SENNOSIDES 8.6MG TABLET (FP) PO SCH (21:24)
[2022-01-29] MEDS: LIDOCAINE PATCH REMOVAL MC SCH ×2 (21:24)
[2022-01-29] MEDS: ROSUVASTATIN CA 10 MG TABLET PO SCH (21:24)
[2022-01-30] MEDS: LEVOTHYROXINE NA 100 MCG TABLET (FP) PO SCH (06:09)
[2022-01-30] MEDS: NAPH,MB-DB/K PH,MBDB POWDER PACKET PO SCH (06:10)
[2022-01-30] MEDS: HYDROCHLOROTHIAZIDE 25 MG TABLET (FP) PO SCH (10:47)
[2022-01-30] MEDS: POLYETHYLENE GLYCOL (HEALTHYLAX) 3350 17 GM PACKET PO SCH ×2 (10:47→21:31)
[2022-01-30] MEDS: FLUCONAZOLE 100 MG TABLET (UD) PO SCH (10:47)
[2022-01-30] MEDS: MULTIVITAMINS (DAILY MVI) TABLET (FP) PO SCH (10:47)
[2022-01-30] MEDS: ASCORBIC ACID 500 MG TABLET (FP) PO SCH (10:47)
[2022-01-30] MEDS: LOSARTAN POTASSIUM 50 MG TABLET PO SCH (10:47)
[2022-01-30] MEDS: amLODIPine BESYLATE 5 MG TABLET (FP) PO SCH (10:47)
[2022-01-30] MEDS: LIDOCAINE 5% TOPICAL PATCH TP SCH ×2 (10:48)
[2022-01-30] MEDS: AMINO ACIDS/PROTEIN HYDROLYS 30 ML LIQUID.PKT PO SCH ×2 (10:48→18:12)
[2022-01-30] MEDS: ENOXAPARIN NA (PORCINE) 30 MG/0.3 ML DISP.SYRIN SQ SCH (10:49)
[2022-01-30] MEDS: NYSTATIN 100,000 UNIT/GM TOPICAL CREAM 15 GM TUBE TP SCH ×2 (10:49→22:23)
[2022-01-30] MEDS: ZINC OXIDE 20% TOPICAL OINTMENT 30 GM TUBE TP SCH ×2 (10:49→22:24)
[2022-01-30 13:12] LABS: HEMATOCRIT 26.5 % (32.4-45.2); HEMOGLOBIN 8.9 GM/dL (10.7-15.3); MCH 32.4 pg (25.7-33.7); MCHC 33.7 g/dl (32.0-36.0); MEAN CELL VOLUME 96.3 fl (80-96); MEAN PLT VOLUME 6.5 fl (7.5-11.1); PLATELET COUNT 449 10^3/uL (134-434); RBC 2.76 M/mm3 (3.60-5.2); WHITE BLOOD COUNT 8.8 K/mm3 (4.0-10.0)
[2022-01-30 13:38] LABS: CALCIUM 8.8 mg/dL (8.5-10.1)
[2022-01-30 13:39] LABS: BLOOD UREA NITROGEN 13.9 mg/dL (7-18)
[2022-01-30 13:42] LABS: CREATININE 0.4 mg/dL (0.55-1.3); PHOSPHOROUS 3.2 mg/dL (2.5-4.9)
[2022-01-30] MEDS: SENNOSIDES 8.6MG TABLET (FP) PO SCH (21:31)
[2022-01-30] MEDS: ROSUVASTATIN CA 10 MG TABLET PO SCH (21:31)
[2022-01-30] MEDS: LIDOCAINE PATCH REMOVAL MC SCH ×2 (23:23)
[2022-01-31] MEDS: LEVOTHYROXINE NA 100 MCG TABLET (FP) PO SCH (06:01)
[2022-01-31 10:04] LABS: HEMATOCRIT 27.3 % (32.4-45.2); HEMOGLOBIN 9.3 GM/dL (10.7-15.3); MCH 32.3 pg (25.7-33.7); MCHC 33.9 g/dl (32.0-36.0); MEAN CELL VOLUME 95.3 fl (80-96); PLATELET COUNT 518 10^3/uL (134-434); RBC 2.86 M/mm3 (3.60-5.2); WHITE BLOOD COUNT 8.9 K/mm3 (4.0-10.0)
[2022-01-31] MEDS: LIDOCAINE 5% TOPICAL PATCH TP SCH ×2 (10:18→10:19)
[2022-01-31] MEDS: HYDROCHLOROTHIAZIDE 25 MG TABLET (FP) PO SCH (10:19)
[2022-01-31] MEDS: ENOXAPARIN NA (PORCINE) 30 MG/0.3 ML DISP.SYRIN SQ SCH (10:19)
[2022-01-31] MEDS: AMINO ACIDS/PROTEIN HYDROLYS 30 ML LIQUID.PKT PO SCH ×2 (10:19→18:41)
[2022-01-31] MEDS: amLODIPine BESYLATE 5 MG TABLET (FP) PO SCH (10:19)
[2022-01-31] MEDS: ASCORBIC ACID 500 MG TABLET (FP) PO SCH (10:19)
[2022-01-31] MEDS: MULTIVITAMINS (DAILY MVI) TABLET (FP) PO SCH (10:20)
[2022-01-31] MEDS: NYSTATIN 100,000 UNIT/GM TOPICAL CREAM 15 GM TUBE TP SCH ×2 (10:21→22:08)
[2022-01-31] MEDS: POLYETHYLENE GLYCOL (HEALTHYLAX) 3350 17 GM PACKET PO SCH ×2 (10:21→21:29)
[2022-01-31] MEDS: ZINC OXIDE 20% TOPICAL OINTMENT 30 GM TUBE TP SCH ×2 (10:21→22:08)
[2022-01-31] MEDS: LOSARTAN POTASSIUM 50 MG TABLET PO SCH (10:21)
[2022-01-31] MEDS: FLUCONAZOLE 100 MG TABLET (UD) PO SCH (10:22)
[2022-01-31 10:30] LABS: CALCIUM 8.8 mg/dL (8.5-10.1)
[2022-01-31 10:31] LABS: ALBUMIN 1.8 g/dl (3.4-5.0); MAGNESIUM 1.8 mg/dL (1.8-2.4)
[2022-01-31 10:34] LABS: CREATININE 0.4 mg/dL (0.55-1.3); PHOSPHOROUS 2.5 mg/dL (2.5-4.9)
[2022-01-31 10:36] LABS: BILIRUBIN,TOTAL 0.3 mg/dL (0.2-1)
[2022-01-31] MEDS: ROSUVASTATIN CA 10 MG TABLET PO SCH (21:29)
[2022-01-31] MEDS: SENNOSIDES 8.6MG TABLET (FP) PO SCH (21:29)
[2022-01-31] MEDS: LIDOCAINE PATCH REMOVAL MC SCH ×2 (22:08)
[2022-02-01] MEDS: LEVOTHYROXINE NA 100 MCG TABLET (FP) PO SCH (06:11)
[2022-02-01 09:49] LABS: HEMOGLOBIN 9.1 GM/dL (10.7-15.3); MCH 32.1 pg (25.7-33.7); MCHC 33.8 g/dl (32.0-36.0); MEAN CELL VOLUME 94.9 fl (80-96); PLATELET COUNT 534 10^3/uL (134-434); RBC 2.85 M/mm3 (3.60-5.2); WHITE BLOOD COUNT 7.4 K/mm3 (4.0-10.0)
[2022-02-01 09:52] LABS: MEAN PLT VOLUME 5.8 fl (7.5-11.1)
[2022-02-01 10:23] LABS: CALCIUM 8.6 mg/dL (8.5-10.1)
[2022-02-01 10:24] LABS: ALBUMIN 1.9 g/dl (3.4-5.0); BLOOD UREA NITROGEN 15.6 mg/dL (7-18); MAGNESIUM 1.9 mg/dL (1.8-2.4)
[2022-02-01 10:27] LABS: CREATININE 0.5 mg/dL (0.55-1.3); PHOSPHOROUS 3.3 mg/dL (2.5-4.9)
[2022-02-01 10:28] LABS: BILIRUBIN,TOTAL 0.2 mg/dL (0.2-1); TOT PROT 5.7 g/dl (6.4-8.2)
[2022-02-01] MEDS: AMINO ACIDS/PROTEIN HYDROLYS 30 ML LIQUID.PKT PO SCH ×2 (10:28→16:39)
[2022-02-01] MEDS: ASCORBIC ACID 500 MG TABLET (FP) PO SCH (10:29)
[2022-02-01] MEDS: FERROUS SO4 325 MG TABLET (FP) PO SCH (10:29)
[2022-02-01] MEDS: MULTIVITAMINS (DAILY MVI) TABLET (FP) PO SCH (10:29)
[2022-02-01] MEDS: FLUCONAZOLE 100 MG TABLET (UD) PO SCH (10:29)
[2022-02-01] MEDS: LIDOCAINE 5% TOPICAL PATCH TP SCH ×2 (10:30)
[2022-02-01] MEDS: POLYETHYLENE GLYCOL (HEALTHYLAX) 3350 17 GM PACKET PO SCH ×3 (10:30→22:39)
[2022-02-01] MEDS: ENOXAPARIN NA (PORCINE) 30 MG/0.3 ML DISP.SYRIN SQ SCH (10:31)
[2022-02-01] MEDS: ZINC OXIDE 20% TOPICAL OINTMENT 30 GM TUBE TP SCH ×2 (10:31→22:40)
[2022-02-01] MEDS: NYSTATIN 100,000 UNIT/GM TOPICAL CREAM 15 GM TUBE TP SCH ×2 (10:31→22:40)
[2022-02-01] MEDS: HYDROCHLOROTHIAZIDE 25 MG TABLET (FP) PO SCH (14:21)
[2022-02-01] MEDS: LOSARTAN POTASSIUM 50 MG TABLET PO SCH (14:21)
[2022-02-01] MEDS: amLODIPine BESYLATE 5 MG TABLET (FP) PO SCH (14:22)
[2022-02-01] MEDS: ROSUVASTATIN CA 10 MG TABLET PO SCH (22:38)
[2022-02-01] MEDS: LIDOCAINE PATCH REMOVAL MC SCH ×2 (22:39)
[2022-02-01] MEDS: SENNOSIDES 8.6MG TABLET (FP) PO SCH (22:40)
[2022-02-01] MEDS: ACETAMINOPHEN 500 MG TABLET (FP) PO PRN (22:58)
[2022-02-02] MEDS: LEVOTHYROXINE NA 100 MCG TABLET (FP) PO SCH (06:36)
[2022-02-02] MEDS: AMINO ACIDS/PROTEIN HYDROLYS 30 ML LIQUID.PKT PO SCH ×2 (08:29→17:06)
[2022-02-02] MEDS: LOSARTAN POTASSIUM 50 MG TABLET PO SCH (09:56)
[2022-02-02] MEDS: amLODIPine BESYLATE 5 MG TABLET (FP) PO SCH (09:57)
[2022-02-02] MEDS: HYDROCHLOROTHIAZIDE 25 MG TABLET (FP) PO SCH (09:57)
[2022-02-02] MEDS: POLYETHYLENE GLYCOL (HEALTHYLAX) 3350 17 GM PACKET PO SCH ×3 (09:57→22:57)
[2022-02-02] MEDS: MULTIVITAMINS (DAILY MVI) TABLET (FP) PO SCH (09:57)
[2022-02-02] MEDS: ASCORBIC ACID 500 MG TABLET (FP) PO SCH (09:57)
[2022-02-02] MEDS: ENOXAPARIN NA (PORCINE) 30 MG/0.3 ML DISP.SYRIN SQ SCH (09:58)
[2022-02-02] MEDS: LIDOCAINE 5% TOPICAL PATCH TP SCH ×2 (09:58→10:10)
[2022-02-02] MEDS: ZINC OXIDE 20% TOPICAL OINTMENT 30 GM TUBE TP SCH ×2 (09:59→22:57)
[2022-02-02] MEDS: NYSTATIN 100,000 UNIT/GM TOPICAL CREAM 15 GM TUBE TP SCH ×2 (09:59→22:57)
[2022-02-02 11:05] LABS: HEMATOCRIT 27.8 % (32.4-45.2); HEMOGLOBIN 9.3 GM/dL (10.7-15.3); MCH 32.2 pg (25.7-33.7); MCHC 33.6 g/dl (32.0-36.0); MEAN CELL VOLUME 95.9 fl (80-96); MEAN PLT VOLUME 6.1 fl (7.5-11.1); PLATELET COUNT 514 10^3/uL (134-434); RDW 16.1 % (11.6-15.6); WHITE BLOOD COUNT 5.4 K/mm3 (4.0-10.0)
[2022-02-02 11:48] LABS: CALCIUM 8.5 mg/dL (8.5-10.1)
[2022-02-02 11:49] LABS: BLOOD UREA NITROGEN 13.6 mg/dL (7-18)
[2022-02-02 11:51] LABS: CREATININE 0.3 mg/dL (0.55-1.3)
[2022-02-02] MEDS: ROSUVASTATIN CA 10 MG TABLET PO SCH (22:57)
[2022-02-02] MEDS: LIDOCAINE PATCH REMOVAL MC SCH ×2 (22:57)
[2022-02-02] MEDS: SENNOSIDES 8.6MG TABLET (FP) PO SCH (22:58)
[2022-02-03] MEDS ORDERED: guaiFENesin 200 MG/10 ML 10 ML UNIT-DOSE CUPS PO ONE (00:07)
[2022-02-03] MEDS: LEVOTHYROXINE NA 100 MCG TABLET (FP) PO SCH (06:28)
[2022-02-03 08:16] LABS: HEMATOCRIT 26.3 % (32.4-45.2); HEMOGLOBIN 8.8 GM/dL (10.7-15.3); MCH 32.1 pg (25.7-33.7); MCHC 33.6 g/dl (32.0-36.0); MEAN CELL VOLUME 95.5 fl (80-96); MEAN PLT VOLUME 6.1 fl (7.5-11.1); PLATELET COUNT 448 10^3/uL (134-434); RBC 2.75 M/mm3 (3.60-5.2); RDW 16.1 % (11.6-15.6); WHITE BLOOD COUNT 6.5 K/mm3 (4.0-10.0)
[2022-02-03 08:32] LABS: BLOOD UREA NITROGEN 13.3 mg/dL (7-18); CALCIUM 7.9 mg/dL (8.5-10.1); MAGNESIUM 1.9 mg/dL (1.8-2.4)
[2022-02-03 08:36] LABS: CREATININE 0.3 mg/dL (0.55-1.3); PHOSPHOROUS 2.6 mg/dL (2.5-4.9)
[2022-02-03 10:18] VITALS: BP 130/50; PULSE 77; TEMP 98.8
[2022-02-03] MEDS: ASCORBIC ACID 500 MG TABLET (FP) PO SCH (10:18)
[2022-02-03] MEDS: HYDROCHLOROTHIAZIDE 25 MG TABLET (FP) PO SCH (10:18)
[2022-02-03] MEDS: FERROUS SO4 325 MG TABLET (FP) PO SCH (10:18)
[2022-02-03] MEDS: amLODIPine BESYLATE 5 MG TABLET (FP) PO SCH (10:19)
[2022-02-03] MEDS: MULTIVITAMINS (DAILY MVI) TABLET (FP) PO SCH (10:19)
[2022-02-03] MEDS: LOSARTAN POTASSIUM 50 MG TABLET PO SCH (10:19)
[2022-02-03] MEDS: LIDOCAINE 5% TOPICAL PATCH TP SCH ×2 (10:20→10:21)
[2022-02-03] MEDS: AMINO ACIDS/PROTEIN HYDROLYS 30 ML LIQUID.PKT PO SCH (10:20)
[2022-02-03] MEDS: NYSTATIN 100,000 UNIT/GM TOPICAL CREAM 15 GM TUBE TP SCH (10:21)
[2022-02-03] MEDS: ZINC OXIDE 20% TOPICAL OINTMENT 30 GM TUBE TP SCH (10:22)
[2022-02-03] MEDS: ENOXAPARIN NA (PORCINE) 30 MG/0.3 ML DISP.SYRIN SQ SCH (10:24)
[2022-02-03] MEDS: POLYETHYLENE GLYCOL (HEALTHYLAX) 3350 17 GM PACKET PO SCH (10:24)
== END 2022-02-03 15:15 | disposition home or self-care (01) | DRG 554 ==
LOC: JER 04:21 → JERBED 05:05 → J5S 13:26
PROVIDERS: ADMIT Internal Medicine; ATTEND Internal Medicine
PROC: 3E0U33Z Introduction of Anti-inflammatory into Joints, Percutaneous Approach (ICD-10-PCS; principal; 2022-01-25)
PROC: 3E0U3BZ Introduction of Anesthetic Agent into Joints, Percutaneous Approach (ICD-10-PCS; 2022-01-25)
DX: M17.11 Unilateral primary osteoarthritis, right knee (principal); N39.0 Urinary tract infection, site not specified; K51.90 Ulcerative colitis, unspecified, without complications; L22 Diaper dermatitis; G89.29 Other chronic pain; E87.5 Hyperkalemia; J44.9 Chronic obstructive pulmonary disease, unspecified; I10 Essential (primary) hypertension; D50.9 Iron deficiency anemia, unspecified; R29.6 Repeated falls; E78.5 Hyperlipidemia, unspecified; M62.81 Muscle weakness (generalized); M25.562 Pain in left knee; B35.6 Tinea cruris; E03.9 Hypothyroidism, unspecified; M24.561 Contracture, right knee; M24.562 Contracture, left knee; L89.322 Pressure ulcer of left buttock, stage 2; L89.312 Pressure ulcer of right buttock, stage 2; L89.621 Pressure ulcer of left heel, stage 1; L89.612 Pressure ulcer of right heel, stage 2; W18.30XA Fall on same level, unspecified, initial encounter; Y92.89 Other specified places as the place of occurrence of the external cause
CPT/HCPCS: 0241U-QW; 36415; 71045-TC-FY; 72170-TC-FY; 74019-TC-FY; 80048; 80053; 81003; 82272; 82550; 82728; 83010; 83540; 83550; 83615; 83735; 84100; 84439; 84443; 85025; 85027; 85045; 87040; 93005; 93010; 97116-GP; 97162-GP; 99285-25

== ENCOUNTER 2022-02-07 14:11 | Inpatient (IN) | payer OTHER, MEDICARE ==
[2022-02-07 16:39] LABS: BASO % 1.5 % (0-2.0); EOS % 6.3 % (0-4.5); HEMATOCRIT 29.7 % (32.4-45.2); HEMOGLOBIN 9.8 GM/dL (10.7-15.3); LYMPH % 14.2 % (8-40); MCH 31.5 pg (25.7-33.7); MCHC 33.1 g/dl (32.0-36.0); MEAN CELL VOLUME 95.2 fl (80-96); MEAN PLT VOLUME 6.2 fl (7.5-11.1); MONO % 10.7 % (3.8-10.2); NEUT % 67.3 % (42.8-82.8); PLATELET COUNT 484 10^3/uL (134-434); RBC 3.12 M/mm3 (3.60-5.2); RDW 15.9 % (11.6-15.6)
[2022-02-07 16:45] LABS: INR 1.03 (0.83-1.09); PROTHROMBIN TIME (PATIENT) 11.9 SEC (9.7-13.0)
[2022-02-07 16:48] LABS: ACTIVATED PTT 27.6 SECONDS (25.2-36.5)
[2022-02-07 16:53] LABS: CHLORIDE 101 mmol/L (98-107); SODIUM 133 mmol/L (136-145)
[2022-02-07 16:56] LABS: CO2 26 mmol/L (21-32); GLUCOSE,RANDOM 96 mg/dL (74-106)
[2022-02-07 16:58] LABS: SGPT/ALT 33 U/L (13-61)
[2022-02-07 16:59] LABS: CREATININE 0.6 mg/dL (0.55-1.3); SGOT/AST 58 U/L (15-37)
[2022-02-07 17:00] LABS: BILIRUBIN,TOTAL 0.4 mg/dL (0.2-1); TOT PROT 7.3 g/dl (6.4-8.2)
[2022-02-07 17:01] LABS: ALK PHOS 79 U/L (45-117)
[2022-02-07 17:03] LABS: ALBUMIN 2.6 g/dl (3.4-5.0); ANION GAP 7 MMOL/L (8-16); CALCIUM 9.1 mg/dL (8.5-10.1)
[2022-02-07 17:16] LABS: URINE APPEARANCE CLEAR; URINE BILIRUBIN NEGATIVE (NEGATIVE); URINE COLOR YELLOW; URINE GLUCOSE (UA) NEGATIVE (NEGATIVE); URINE KETONE NEGATIVE (NEGATIVE); URINE LEUK ESTERASE NEGATIVE (NEGATIVE); URINE NITRITE NEGATIVE (NEGATIVE); URINE PROTEIN NEGATIVE (NEGATIVE)
[2022-02-07 18:12] LABS: CALCIUM 8.6 mg/dL (8.5-10.1)
[2022-02-07 18:13] LABS: BLOOD UREA NITROGEN 28.3 mg/dL (7-18)
[2022-02-07 18:16] LABS: CREATININE 0.6 mg/dL (0.55-1.3)
[2022-02-07] MEDS ORDERED: ACETAMINOPHEN 500 MG TABLET (FP) PO ONE (19:35)
[2022-02-07] MEDS ORDERED: ACETAMINOPHEN 325 MG TABLET (FP) ONE (19:53)
[2022-02-07] MEDS: SODIUM CHLORIDE 1,000 ML IV SCH (20:19)
[2022-02-08 08:16] LABS: BASO % 1.2 % (0-2.0); EOS % 8.9 % (0-4.5); HEMATOCRIT 27.5 % (32.4-45.2); HEMOGLOBIN 9.3 GM/dL (10.7-15.3); LYMPH % 12.4 % (8-40); MCH 31.7 pg (25.7-33.7); MCHC 33.7 g/dl (32.0-36.0); MEAN CELL VOLUME 93.9 fl (80-96); MONO % 8.6 % (3.8-10.2); NEUT % 68.9 % (42.8-82.8); PLATELET COUNT 438 10^3/uL (134-434); RBC 2.93 M/mm3 (3.60-5.2); RDW 15.3 % (11.6-15.6); WHITE BLOOD COUNT 6.5 K/mm3 (4.0-10.0)
[2022-02-08] MEDS: LEVOTHYROXINE NA 100 MCG TABLET (FP) PO SCH (09:40)
[2022-02-08] MEDS ORDERED: HYDROCHLOROTHIAZIDE 25 MG TABLET (FP) ONE (09:55)
[2022-02-08] MEDS ORDERED: amLODIPine BESYLATE 5 MG TABLET (FP) ONE (09:55)
[2022-02-08] MEDS ORDERED: FERROUS SO4 325 MG TABLET (FP) ONE (09:55)
[2022-02-08] MEDS ORDERED: LOSARTAN POTASSIUM 50 MG TABLET ONE (09:55)
[2022-02-08] MEDS ORDERED: LEVOTHYROXINE NA 50 MCG TABLET (FP) ONE (09:56)
[2022-02-08] MEDS ORDERED: ENOXAPARIN NA (PORCINE) 30 MG/0.3 ML DISP.SYRIN SQ SCH ×2 (10:00)
[2022-02-08] MEDS ORDERED: ACETAMINOPHEN 325 MG TABLET (FP) ONE (11:52)
[2022-02-08] MEDS: MINERAL OIL/PET HY-PHL TOPICAL OINTMENT 454 GM JAR TP SCH ×2 (12:00→22:46)
[2022-02-08] MEDS: ACETAMINOPHEN 500 MG TABLET (FP) PO PRN ×2 (12:03→23:47)
[2022-02-08] MEDS: LOSARTAN POTASSIUM 50 MG TABLET PO SCH (12:03)
[2022-02-08] MEDS: amLODIPine BESYLATE 5 MG TABLET (FP) PO SCH (12:03)
[2022-02-08] MEDS: HYDROCHLOROTHIAZIDE 25 MG TABLET (FP) PO SCH (12:03)
[2022-02-08] MEDS: FERROUS SO4 325 MG TABLET (FP) PO SCH (12:03)
[2022-02-08] MEDS: SODIUM CHLORIDE 1,000 ML IV SCH (21:30)
[2022-02-08] MEDS: ENOXAPARIN NA (PORCINE) 40 MG/0.4 ML DISP.SYRIN SQ SCH (22:45)
[2022-02-08] MEDS: ROSUVASTATIN CA 10 MG TABLET PO SCH (22:46)
[2022-02-08 23:08] VITALS: BMI 20.3
[2022-02-09] MEDS: LEVOTHYROXINE NA 100 MCG TABLET (FP) PO SCH (06:03)
[2022-02-09 08:11] LABS: HEMATOCRIT 31.4 % (32.4-45.2); HEMOGLOBIN 10.4 G/dL (10.7-15.3); MCH 31.8 pg (25.7-33.7); MEAN CELL VOLUME 96.3 fl (80-96); MEAN PLT VOLUME 6.9 fl (7.5-11.1); PLATELET COUNT 488.4 10^3/uL (134-434); RBC 3.26 10^6/uL (3.60-5.2); RDW 15.3 % (11.6-15.6); WHITE BLOOD COUNT 12.9 10^3/uL (4.0-10.8)
[2022-02-09 08:20] LABS: ALBUMIN 2.4 g/dl (3.4-5.0); BILIRUBIN,TOTAL 0.8 mg/dl (0.2-1); CALCIUM 8.9 mg/dl (8.5-10); CREATININE 0.4 mg/dl (0.55-1.3); TOT PROT 6.2 g/dl (6.4-8.2)
[2022-02-09] MEDS: ENOXAPARIN NA (PORCINE) 40 MG/0.4 ML DISP.SYRIN SQ SCH (09:48)
[2022-02-09] MEDS: LOSARTAN POTASSIUM 50 MG TABLET PO SCH (09:48)
[2022-02-09] MEDS: HYDROCHLOROTHIAZIDE 25 MG TABLET (FP) PO SCH (09:48)
[2022-02-09] MEDS: amLODIPine BESYLATE 5 MG TABLET (FP) PO SCH (09:48)
[2022-02-09] MEDS: MINERAL OIL/PET HY-PHL TOPICAL OINTMENT 454 GM JAR TP SCH ×2 (10:08→22:00)
[2022-02-09] MEDS: POTASSIUM CHLORIDE TABS 20 MEQ TABLET.ER (FP) PO SCH ×2 (11:27→18:21)
[2022-02-09] MEDS: ACETAMINOPHEN 500 MG TABLET (FP) PO PRN ×2 (11:27→21:37)
[2022-02-09] MEDS: SODIUM CHLORIDE 1,000 ML IV SCH (18:22)
[2022-02-09] MEDS: ROSUVASTATIN CA 10 MG TABLET PO SCH (21:37)
[2022-02-10] MEDS: LEVOTHYROXINE NA 100 MCG TABLET (FP) PO SCH (06:07)
[2022-02-10 08:23] LABS: ALBUMIN 2.1 g/dl (3.4-5.0); BILIRUBIN,TOTAL 0.7 mg/dl (0.2-1); CALCIUM 8.7 mg/dl (8.5-10); CREATININE 0.6 mg/dl (0.55-1.3); MAGNESIUM 1.5 mg/dL (1.8-2.4); TOT PROT 5.6 g/dl (6.4-8.2)
[2022-02-10 08:35] LABS: HEMATOCRIT 29.5 % (32.4-45.2); HEMOGLOBIN 9.8 G/dL (10.7-15.3); MCH 31.8 pg (25.7-33.7); MCHC 33.2 g/dl (32.0-36.0); MEAN CELL VOLUME 95.7 fl (80-96); MEAN PLT VOLUME 6.9 fl (7.5-11.1); PLATELET COUNT 454.7 10^3/uL (134-434); RBC 3.08 10^6/uL (3.60-5.2); RDW 15.3 % (11.6-15.6); WHITE BLOOD COUNT 9.7 10^3/uL (4.0-10.8)
[2022-02-10] MEDS: MINERAL OIL/PET HY-PHL TOPICAL OINTMENT 454 GM JAR TP SCH (09:26)
[2022-02-10] MEDS: FERROUS SO4 325 MG TABLET (FP) PO SCH (09:26)
[2022-02-10] MEDS: ENOXAPARIN NA (PORCINE) 40 MG/0.4 ML DISP.SYRIN SQ SCH (09:26)
[2022-02-10] MEDS: amLODIPine BESYLATE 5 MG TABLET (FP) PO SCH (09:26)
[2022-02-10] MEDS: HYDROCHLOROTHIAZIDE 25 MG TABLET (FP) PO SCH (09:26)
[2022-02-10] MEDS: LOSARTAN POTASSIUM 50 MG TABLET PO SCH (09:26)
[2022-02-10] MEDS ORDERED: MAGNESIUM SULF 50% (8.12 MEQ/2 ML-1 GM VIAL) IVPB ONE (09:53)
[2022-02-10] MEDS ORDERED: MAGNESIUM SULFATE IN WATER 2 GM/50 ML IVPB IVPB ONE (10:15)
[2022-02-10] MEDS: POTASSIUM CHLORIDE TABS 20 MEQ TABLET.ER (FP) PO SCH ×2 (11:10→16:40)
[2022-02-10 16:10] VITALS: BP 119/47; PULSE 90; TEMP 98.9
[2022-02-10] MEDS: ACETAMINOPHEN 500 MG TABLET (FP) PO PRN (17:49)
== END 2022-02-10 19:40 | disposition home or self-care (01) | DRG 641 ==
LOC: JER 14:11 → JERBED 17:19 → OBSVTOIN 18:22 → FM/S 02-08 21:12
PROVIDERS: ADMIT Internal Medicine; ATTEND Nurse Practitioner Acute Care
DX: R62.7 Adult failure to thrive (principal); E87.1 Hypo-osmolality and hyponatremia; K51.90 Ulcerative colitis, unspecified, without complications; E03.9 Hypothyroidism, unspecified; J44.9 Chronic obstructive pulmonary disease, unspecified; I10 Essential (primary) hypertension; D50.9 Iron deficiency anemia, unspecified; E78.5 Hyperlipidemia, unspecified; L25.9 Unspecified contact dermatitis, unspecified cause; L89.601 Pressure ulcer of unspecified heel, stage 1; G89.29 Other chronic pain; E87.5 Hyperkalemia
CPT/HCPCS: 0241U-QW; 36415; 71045-TC-FY; 80048; 80053; 81003; 82550; 82962; 83735; 84132; 84439; 84443; 85025; 85027; 85610; 85730; 87086; 93005; 93010; 97116-GP; 97162-GP; 99285-25; G0378

== ENCOUNTER 2022-03-02 10:54 | Inpatient (IN) | payer OTHER, MEDICARE ==
[2022-03-02] MEDS ORDERED: ACETAMINOPHEN 1000 MG/100 ML BAG IVPB ONE ×2 (11:54→23:21)
[2022-03-02] MEDS: ALBUTEROL SO4 2.5/IPRATROPIUM 0.5 INH SOL 3 ML VIAL.NEB. NEB SCH ×3 (12:45→13:15)
[2022-03-02] MEDS ORDERED: ALBUTEROL SO4 2.5/IPRATROPIUM 0.5 INH SOL 3 ML VIAL.NEB. NEB ONE (12:46)
[2022-03-02] MEDS ORDERED: ACETAMINOPHEN INJECTION 100 ML IVPB ONE (12:46)
[2022-03-02 14:27] LABS: HEMATOCRIT 29.2 % (32.4-45.2); HEMOGLOBIN 9.5 GM/dL (10.7-15.3); MCH 31.8 pg (25.7-33.7); MEAN CELL VOLUME 97.1 fl (80-96); WHITE BLOOD COUNT 7.1 K/mm3 (4.0-10.0)
[2022-03-02 14:28] LABS: BASO % 0.9 % (0-2.0); EOS % 6.1 % (0-4.5); LYMPH % 13.6 % (8-40); MCHC 32.7 g/dl (32.0-36.0); MEAN PLT VOLUME 6.7 fl (7.5-11.1); NEUT % 60.4 % (42.8-82.8); PLATELET COUNT 300 10^3/uL (134-434); RDW 16.9 % (11.6-15.6)
[2022-03-02 14:48] LABS: CALCIUM 8.6 mg/dL (8.5-10.1)
[2022-03-02 14:49] LABS: ALBUMIN 2.4 g/dl (3.4-5.0); BLOOD UREA NITROGEN 17.1 mg/dL (7-18); MAGNESIUM 1.9 mg/dL (1.8-2.4)
[2022-03-02 14:51] LABS: CREATININE 0.4 mg/dL (0.55-1.3)
[2022-03-02 14:53] LABS: BILIRUBIN,TOTAL 0.4 mg/dL (0.2-1); TOT PROT 6.5 g/dl (6.4-8.2)
[2022-03-02 14:57] LABS: N-TERMINAL BNP 965.2 pg/ml (5-450)
[2022-03-02] MEDS ORDERED: FUROSEMIDE 40 MG/4 ML INJECTABLE VIAL IVPUSH ONE (17:04)
[2022-03-02] MEDS ORDERED: ACETAMINOPHEN 325 MG TABLET (FP) ONE (20:24)
[2022-03-02] MEDS: ACETAMINOPHEN 325 MG TABLET (FP) PO PRN (20:31)
[2022-03-03] MEDS: ACETAMINOPHEN 325 MG TABLET (FP) PO PRN ×2 (03:34→20:46)
[2022-03-03 04:12] VITALS: BMI 22.6
[2022-03-03] MEDS: LEVOTHYROXINE NA 100 MCG TABLET (FP) PO SCH (06:46)
[2022-03-03] MEDS: LOSARTAN POTASSIUM 50 MG TABLET PO SCH (09:10)
[2022-03-03] MEDS: ENOXAPARIN NA (PORCINE) 40 MG/0.4 ML DISP.SYRIN SQ SCH (09:11)
[2022-03-03] MEDS: HYDROCHLOROTHIAZIDE 25 MG TABLET (FP) PO SCH (09:11)
[2022-03-03 10:24] LABS: HEMATOCRIT 32.9 % (32.4-45.2); HEMOGLOBIN 10.7 GM/dL (10.7-15.3); MCH 31.5 pg (25.7-33.7); MCHC 32.5 g/dl (32.0-36.0); MEAN PLT VOLUME 6.7 fl (7.5-11.1); PLATELET COUNT 404 10^3/uL (134-434); RBC 3.39 M/mm3 (3.60-5.2); RDW 16.3 % (11.6-15.6); WHITE BLOOD COUNT 6.1 K/mm3 (4.0-10.0)
[2022-03-03 10:40] LABS: ALBUMIN 2.4 g/dl (3.4-5.0); BLOOD UREA NITROGEN 10.1 mg/dL (7-18)
[2022-03-03 10:43] LABS: CREATININE 0.5 mg/dL (0.55-1.3); PHOSPHOROUS 3.3 mg/dL (2.5-4.9)
[2022-03-03 10:45] LABS: BILIRUBIN,TOTAL 0.7 mg/dL (0.2-1); TOT PROT 6.8 g/dl (6.4-8.2)
[2022-03-03] MEDS ORDERED: KETOROLAC TROMETHAMINE 15 MG/ML VIAL IVPUSH ONE (11:00)
[2022-03-03] MEDS: COLLAGENASE CLOSTRIDIUM HIST. 30 GRAMS TUBE TP SCH (18:15)
[2022-03-03] MEDS ORDERED: REMDESIVIR 200 MG in SODIUM CHLORIDE 250 ML IVPB ONE (18:30)
[2022-03-04] MEDS: LEVOTHYROXINE NA 100 MCG TABLET (FP) PO SCH (06:12)
[2022-03-04] MEDS: ENOXAPARIN NA (PORCINE) 40 MG/0.4 ML DISP.SYRIN SQ SCH (09:00)
[2022-03-04] MEDS: HYDROCHLOROTHIAZIDE 25 MG TABLET (FP) PO SCH (09:00)
[2022-03-04] MEDS: LOSARTAN POTASSIUM 50 MG TABLET PO SCH (09:00)
[2022-03-04 09:38] LABS: MCHC 33.3 g/dl (32.0-36.0); MEAN CELL VOLUME 96.2 fl (80-96); MEAN PLT VOLUME 6.5 fl (7.5-11.1); PLATELET COUNT 417 10^3/uL (134-434); RBC 3.12 M/mm3 (3.60-5.2); RDW 16.2 % (11.6-15.6); WHITE BLOOD COUNT 5.7 K/mm3 (4.0-10.0)
[2022-03-04 09:54] LABS: ALBUMIN 2.1 g/dl (3.4-5.0); CALCIUM 8.6 mg/dL (8.5-10.1); MAGNESIUM 1.9 mg/dL (1.8-2.4)
[2022-03-04 09:57] LABS: BLOOD UREA NITROGEN 8.4 mg/dL (7-18); CREATININE 0.3 mg/dL (0.55-1.3)
[2022-03-04 09:58] LABS: BILIRUBIN,TOTAL 0.3 mg/dL (0.2-1)
[2022-03-04] MEDS: REMDESIVIR 100 MG in SODIUM CHLORIDE 250 ML IVPB SCH (10:45)
[2022-03-04] MEDS: BUDESONIDE/FORMETEROL FUMARATE 160/4.5 mcg INHALER IH SCH ×2 (10:46→21:16)
[2022-03-04 10:49] LABS: ANISOCYTOSIS 1+; MACROCYTOSIS 0
[2022-03-04] MEDS: COLLAGENASE CLOSTRIDIUM HIST. 30 GRAMS TUBE TP SCH (10:53)
[2022-03-04] MEDS ORDERED: ZINC OXIDE/PANTHENOL/VITAMIN E 56 GM TUBE TP PRN (13:47)
[2022-03-04] MEDS ORDERED: KETOROLAC TROMETHAMINE 15 MG/ML VIAL IVPUSH PRN (13:49)
[2022-03-04] MEDS: LIDOCAINE 5% TOPICAL PATCH TP SCH (14:25)
[2022-03-04] MEDS: MINERAL OIL/PET HY-PHL TOPICAL OINTMENT 454 GM JAR TP SCH ×2 (14:26→21:15)
[2022-03-04] MEDS: AMINO ACIDS/PROTEIN HYDROLYS 30 ML LIQUID.PKT PO SCH (17:11)
[2022-03-04] MEDS ORDERED: POTASSIUM CHLORIDE TABS 20 MEQ TABLET.ER (FP) PO ONE (17:29)
[2022-03-04] MEDS: LIDOCAINE PATCH REMOVAL MC SCH (21:16)
[2022-03-05] MEDS: AMINO ACIDS/PROTEIN HYDROLYS 30 ML LIQUID.PKT PO SCH ×2 (07:43→19:12)
[2022-03-05] MEDS: LEVOTHYROXINE NA 100 MCG TABLET (FP) PO SCH (07:43)
[2022-03-05] MEDS: ENOXAPARIN NA (PORCINE) 40 MG/0.4 ML DISP.SYRIN SQ SCH (10:42)
[2022-03-05] MEDS: HYDROCHLOROTHIAZIDE 25 MG TABLET (FP) PO SCH (10:43)
[2022-03-05] MEDS: LOSARTAN POTASSIUM 50 MG TABLET PO SCH (10:43)
[2022-03-05] MEDS: COLLAGENASE CLOSTRIDIUM HIST. 30 GRAMS TUBE TP SCH (10:43)
[2022-03-05] MEDS: LIDOCAINE 5% TOPICAL PATCH TP SCH (10:43)
[2022-03-05] MEDS: MINERAL OIL/PET HY-PHL TOPICAL OINTMENT 454 GM JAR TP SCH ×2 (10:43→21:21)
[2022-03-05] MEDS: BUDESONIDE/FORMETEROL FUMARATE 160/4.5 mcg INHALER IH SCH ×2 (10:43→21:21)
[2022-03-05] MEDS: MULTIVITAMINS THER W-MINERALS COMBO TABLET (FP) PO SCH (10:43)
[2022-03-05] MEDS: REMDESIVIR 100 MG in SODIUM CHLORIDE 250 ML IVPB SCH (10:43)
[2022-03-05] MEDS: KETOROLAC TROMETHAMINE 10 MG TABLET PO PRN (15:36)
[2022-03-05] MEDS: LIDOCAINE PATCH REMOVAL MC SCH (21:21)
[2022-03-06] MEDS: LEVOTHYROXINE NA 100 MCG TABLET (FP) PO SCH (06:24)
[2022-03-06 09:20] LABS: HEMATOCRIT 29.2 % (32.4-45.2); HEMOGLOBIN 9.8 GM/dL (10.7-15.3); MCHC 33.7 g/dl (32.0-36.0); MEAN CELL VOLUME 95.1 fl (80-96); MEAN PLT VOLUME 6.3 fl (7.5-11.1); PLATELET COUNT 451 10^3/uL (134-434); RBC 3.07 M/mm3 (3.60-5.2); RDW 16.1 % (11.6-15.6); WHITE BLOOD COUNT 6.1 K/mm3 (4.0-10.0)
[2022-03-06 09:26] LABS: ALBUMIN 2.1 g/dl (3.4-5.0); CALCIUM 8.6 mg/dL (8.5-10.1)
[2022-03-06 09:27] LABS: BLOOD UREA NITROGEN 12.1 mg/dL (7-18)
[2022-03-06 09:29] LABS: CREATININE 0.4 mg/dL (0.55-1.3)
[2022-03-06 09:30] LABS: BILIRUBIN,TOTAL 0.5 mg/dL (0.2-1); TOT PROT 5.9 g/dl (6.4-8.2)
[2022-03-06] MEDS: ENOXAPARIN NA (PORCINE) 40 MG/0.4 ML DISP.SYRIN SQ SCH (09:41)
[2022-03-06] MEDS: LIDOCAINE 5% TOPICAL PATCH TP SCH (09:42)
[2022-03-06] MEDS: LOSARTAN POTASSIUM 50 MG TABLET PO SCH (09:42)
[2022-03-06] MEDS: HYDROCHLOROTHIAZIDE 25 MG TABLET (FP) PO SCH (09:43)
[2022-03-06] MEDS: AMINO ACIDS/PROTEIN HYDROLYS 30 ML LIQUID.PKT PO SCH ×2 (09:43→17:00)
[2022-03-06] MEDS: BUDESONIDE/FORMETEROL FUMARATE 160/4.5 mcg INHALER IH SCH ×2 (09:43→22:02)
[2022-03-06] MEDS: COLLAGENASE CLOSTRIDIUM HIST. 30 GRAMS TUBE TP SCH (09:43)
[2022-03-06] MEDS: MINERAL OIL/PET HY-PHL TOPICAL OINTMENT 454 GM JAR TP SCH ×2 (09:43→22:02)
[2022-03-06] MEDS: MULTIVITAMINS THER W-MINERALS COMBO TABLET (FP) PO SCH (09:44)
[2022-03-06] MEDS ORDERED: POTASSIUM CHLORIDE TABS 20 MEQ TABLET.ER (FP) PO ONE (10:07)
[2022-03-06 11:43] LABS: ANISOCYTOSIS 0; HELMET CELLS 0; HOWELL-JOLLY BODIES 0; MACROCYTOSIS 0; OVALOCYTE 0; ROULEAU 0; SICKELED CELLS 0; TARGET CELLS 0; TEAR DROP CELLS 0; TOXIC GRANULATION 0
[2022-03-06] MEDS: KETOROLAC TROMETHAMINE 10 MG TABLET PO PRN (13:53)
[2022-03-06] MEDS: ACETAMINOPHEN 325 MG TABLET (FP) PO PRN (16:37)
[2022-03-06] MEDS: LIDOCAINE PATCH REMOVAL MC SCH (22:02)
[2022-03-07] MEDS: LEVOTHYROXINE NA 100 MCG TABLET (FP) PO SCH (06:11)
[2022-03-07 09:03] LABS: HEMOGLOBIN 9.7 GM/dL (10.7-15.3); LYMPH % 12.4 % (8-40); MCH 31.7 pg (25.7-33.7); MCHC 33.3 g/dl (32.0-36.0); MEAN CELL VOLUME 94.9 fl (80-96); MEAN PLT VOLUME 6.2 fl (7.5-11.1); MONO % 9.5 % (3.8-10.2); NEUT % 54.1 % (42.8-82.8); PLATELET COUNT 471 10^3/uL (134-434); RBC 3.06 M/mm3 (3.60-5.2); RDW 15.7 % (11.6-15.6); WHITE BLOOD COUNT 6.7 K/mm3 (4.0-10.0)
[2022-03-07 09:20] LABS: ALBUMIN 2.2 g/dl (3.4-5.0); BLOOD UREA NITROGEN 16.4 mg/dL (7-18); CALCIUM 8.7 mg/dL (8.5-10.1)
[2022-03-07 09:21] LABS: MAGNESIUM 1.9 mg/dL (1.8-2.4)
[2022-03-07 09:23] LABS: CREATININE 0.4 mg/dL (0.55-1.3)
[2022-03-07 09:25] LABS: BILIRUBIN,TOTAL 0.5 mg/dL (0.2-1); TOT PROT 6.3 g/dl (6.4-8.2)
[2022-03-07] MEDS: LIDOCAINE 5% TOPICAL PATCH TP SCH (09:53)
[2022-03-07] MEDS: AMINO ACIDS/PROTEIN HYDROLYS 30 ML LIQUID.PKT PO SCH ×2 (09:53→18:25)
[2022-03-07] MEDS: MULTIVITAMINS THER W-MINERALS COMBO TABLET (FP) PO SCH (09:54)
[2022-03-07] MEDS: KETOROLAC TROMETHAMINE 10 MG TABLET PO PRN (09:54)
[2022-03-07] MEDS: HYDROCHLOROTHIAZIDE 25 MG TABLET (FP) PO SCH (09:55)
[2022-03-07] MEDS: LOSARTAN POTASSIUM 50 MG TABLET PO SCH (09:55)
[2022-03-07] MEDS: MINERAL OIL/PET HY-PHL TOPICAL OINTMENT 454 GM JAR TP SCH ×2 (09:55→22:54)
[2022-03-07] MEDS: BUDESONIDE/FORMETEROL FUMARATE 160/4.5 mcg INHALER IH SCH ×2 (09:56→22:54)
[2022-03-07] MEDS: COLLAGENASE CLOSTRIDIUM HIST. 30 GRAMS TUBE TP SCH (09:56)
[2022-03-07] MEDS: ENOXAPARIN NA (PORCINE) 40 MG/0.4 ML DISP.SYRIN SQ SCH (09:56)
[2022-03-07 10:43] LABS: ANISOCYTOSIS 0; HELMET CELLS 0; HOWELL-JOLLY BODIES 0; MACROCYTOSIS 0; OVALOCYTE 0; ROULEAU 0; SICKELED CELLS 0; TARGET CELLS 0; TEAR DROP CELLS 0; TOXIC GRANULATION 0
[2022-03-07] MEDS: ASCORBIC ACID 500 MG TABLET (FP) PO SCH (22:54)
[2022-03-07] MEDS: LIDOCAINE PATCH REMOVAL MC SCH (22:54)
[2022-03-08] MEDS: LEVOTHYROXINE NA 100 MCG TABLET (FP) PO SCH (06:16)
[2022-03-08] MEDS: AMINO ACIDS/PROTEIN HYDROLYS 30 ML LIQUID.PKT PO SCH ×2 (10:53→18:11)
[2022-03-08] MEDS: LOSARTAN POTASSIUM 50 MG TABLET PO SCH (10:53)
[2022-03-08] MEDS: ASCORBIC ACID 500 MG TABLET (FP) PO SCH ×2 (10:53→21:53)
[2022-03-08] MEDS: MULTIVITAMINS THER W-MINERALS COMBO TABLET (FP) PO SCH (10:54)
[2022-03-08] MEDS: HYDROCHLOROTHIAZIDE 25 MG TABLET (FP) PO SCH (10:54)
[2022-03-08] MEDS: ENOXAPARIN NA (PORCINE) 40 MG/0.4 ML DISP.SYRIN SQ SCH (10:55)
[2022-03-08] MEDS: LIDOCAINE 5% TOPICAL PATCH TP SCH (10:55)
[2022-03-08] MEDS: BUDESONIDE/FORMETEROL FUMARATE 160/4.5 mcg INHALER IH SCH ×2 (11:14→21:53)
[2022-03-08] MEDS: MINERAL OIL/PET HY-PHL TOPICAL OINTMENT 454 GM JAR TP SCH ×2 (11:14→21:53)
[2022-03-08] MEDS: COLLAGENASE CLOSTRIDIUM HIST. 30 GRAMS TUBE TP SCH (11:15)
[2022-03-08] MEDS: KETOROLAC TROMETHAMINE 10 MG TABLET PO PRN (18:49)
[2022-03-08] MEDS: LIDOCAINE PATCH REMOVAL MC SCH (21:53)
[2022-03-08] MEDS: ACETAMINOPHEN 325 MG TABLET (FP) PO PRN (21:53)
[2022-03-08 23:10] VITALS: RESP 20
[2022-03-09] MEDS: LEVOTHYROXINE NA 100 MCG TABLET (FP) PO SCH (06:20)
[2022-03-09 07:01] VITALS: BP 139/68; PULSE 82; TEMP 98.9
[2022-03-09] MEDS: HYDROCHLOROTHIAZIDE 25 MG TABLET (FP) PO SCH (10:10)
[2022-03-09] MEDS: ASCORBIC ACID 500 MG TABLET (FP) PO SCH (10:10)
[2022-03-09] MEDS: MINERAL OIL/PET HY-PHL TOPICAL OINTMENT 454 GM JAR TP SCH (10:10)
[2022-03-09] MEDS: LOSARTAN POTASSIUM 50 MG TABLET PO SCH (10:10)
[2022-03-09] MEDS: MULTIVITAMINS THER W-MINERALS COMBO TABLET (FP) PO SCH (10:10)
[2022-03-09] MEDS: LIDOCAINE 5% TOPICAL PATCH TP SCH (10:11)
[2022-03-09] MEDS: AMINO ACIDS/PROTEIN HYDROLYS 30 ML LIQUID.PKT PO SCH (10:11)
[2022-03-09] MEDS: BUDESONIDE/FORMETEROL FUMARATE 160/4.5 mcg INHALER IH SCH (10:14)
[2022-03-09] MEDS ORDERED: POLYETHYLENE GLYCOL (HEALTHYLAX) 3350 17 GM PACKET PO SCH (10:45)
[2022-03-09] MEDS: COLLAGENASE CLOSTRIDIUM HIST. 30 GRAMS TUBE TP SCH (11:15)
[2022-03-09] MEDS: ENOXAPARIN NA (PORCINE) 40 MG/0.4 ML DISP.SYRIN SQ SCH (11:15)
== END 2022-03-09 13:13 | disposition home health service (06) | DRG 178 ==
LOC: JER 10:54 → INTOOBSV 15:50 → JERBED 15:50 → J8W 03-03 02:53 → OBSVTOIN 03-04 09:40
PROVIDERS: ADMIT Internal Medicine; ATTEND Nurse Practitioner Acute Care
PROC: XW033E5 Introduction of Remdesivir Anti-infective into Peripheral Vein, Percutaneous Approach, New Technology Group 5 (ICD-10-PCS; principal; 2022-03-02)
DX: U07.1 COVID-19 (principal); G82.20 Paraplegia, unspecified; K51.90 Ulcerative colitis, unspecified, without complications; L03.317 Cellulitis of buttock; E03.9 Hypothyroidism, unspecified; J44.9 Chronic obstructive pulmonary disease, unspecified; I10 Essential (primary) hypertension; E78.5 Hyperlipidemia, unspecified; Z99.3 Dependence on wheelchair; F17.210 Nicotine dependence, cigarettes, uncomplicated; E88.09 Other disorders of plasma-protein metabolism, not elsewhere classified; L89.512 Pressure ulcer of right ankle, stage 2
CPT/HCPCS: 0241U-QW; 36415; 71045-TC-FY; 71260-TC; 80053; 83735; 83880; 84100; 84484; 85025; 85027; 85379; 86140; 93005; 93010; 97116-GP; 97161-GP; 99285-25; C9399; C9803-CS; G0378; Q9967; U0003; U0005